=== PATIENT | female | born 1950 | race Caucasian/White ===

== ENCOUNTER 2017-11-17 21:58 | Emergency (ER) | payer MEDICARE, OTHER ==
[~2017-11-17] VITALS: Ht 165.1 cm; Wt 68.0 kg
[2017-11-17] MEDS ORDERED: ASPIRIN81 MG ORAL (22:18)
[2017-11-17] MEDS ORDERED: OXYCODONE HCL10 MG ORAL (22:18)
[2017-11-17] MEDS ORDERED: OXYCONTIN20 MG ORAL (22:18)
[2017-11-17] MEDS ORDERED: ACETAZOLAMIDE250 MG ORAL ×2 (22:18)
[2017-11-17] MEDS ORDERED: DOCUSATE SODIU100 MG ORAL (22:18)
[2017-11-17] MEDS ORDERED: BISACODYL5 MG ORAL (22:18)
[2017-11-17] MEDS ORDERED: LACTULOSE10 GM/153 PO (22:18)
[2017-11-17] MEDS ORDERED: METHAZOLAMIDE50 MG ORAL (22:18)
[2017-11-17] MEDS ORDERED: CELEBREX200 MG ORAL (22:18)
[2017-11-17] MEDS ORDERED: POTASSIUM CHLO10 ME3 ORAL (22:18)
[2017-11-17] MEDS ORDERED: MIRALAX17 G2 ORAL (22:18)
[2017-11-17] MEDS ORDERED: CYMBALTA60 MG ORAL (22:18)
[2017-11-17] MEDS ORDERED: TOPIRAMATE100 MG ORAL (22:18)
[2017-11-17] MEDS ORDERED: TRAZODONE HCL100 MG ORAL (22:19)
[2017-11-17] MEDS ORDERED: AMBIEN10 M1 ORAL (22:19)
--- NOTE | 2017-11-17 22:25 | Emergency Room Report ---
History of Present Illness General Chief Complaint: Lower Extremity Injury Source: Patient Present Illness HPI 67-year-old female brought in by EMS with left knee pain after accidental slip and fall on left knee over this morning. States she's had multiple surgeries to knee in the past. States surgeries have included repair of ligaments and tendons., Has not had knee replacement. No hardware in the knee. Able to flex and extend knee without pain, able to walk. Did not take any over-the- counter medications at home. Allergies: Coded Allergies: CORTICOSTEROIDS (GLUCOCORTICOIDS) (Verified Allergy, Unknown, 11/17/17) Patient History Past Medical History: none Past Surgical History: other - knee surgery Pertinent Family History: none Social History: Denies: smoking, alcohol use, drug use Now: No Immunizations: UTD Reviewed Nursing Documentation: PMH: Agreed, PSxH: Agreed Nursing Documentation-PMH Hx Cardiac Problems: Yes - STENT Hx Gastrointestinal Problems: Yes - BLADDER SURGERY Review of Systems All Other Systems: negative except mentioned in HPI Physical Exam Vital Signs Date Time Temp Pulse Resp B/P (MAP) Pulse Ox O2 Delivery O2 Flow Rate FiO2 11/17/17 21:59 98.5 98 16 174/98 100 Room Air 98.4 Sp02 EP Interpretation: reviewed, normal General Appearance: normal inspection, well appearing, no apparent distress, alert, GCS 15, non-toxic Head: normocephalic, atraumatic Eyes: bilateral eye PERRL, bilateral eye EOMI ENT: normal ENT inspection, hearing grossly normal, normal pharynx, no angioedema, normal voice, TMs + canals normal, uvula midline, moist mucus membranes Neck: normal inspection, full range of motion, supple, thyroid normal, no meningismus, no bony tend Respiratory: normal inspection, lungs clear, normal breath sounds, no rhonchi, no respiratory distress, no retraction, no accessory muscle use, no wheezing, speaking full sentences Cardiovascular #1: regular rate, rhythm, no edema, no JVD, normal capillary refill Gastrointestinal: normal inspection, normal bowel sounds, non tender, soft, no mass, no peritonitis, non-distended, no guarding, no hernia, no pulsatile mass Genitourinary: no CVA tenderness Musculoskeletal: normal inspection, back normal, normal range of motion, no calf tenderness, pelvis stable, Scarlett's Sign negative, other - left knee: Multiple post surgical scarring. No effusion, bruising or obvious trauma. No reduced ROM Neurologic: normal inspection, alert, oriented x3, responsive, basket assembler III-XII nml as tested, motor strength/tone normal, cerebellar normal, normal gait, speech normal Psychiatric: normal inspection, judgement/insight normal, mood/affect normal, no suicidal/homicidal ideation, no delusions Skin: normal inspection, normal color, no rash Lymphatic: normal inspection, no adenopathy Medical Decision Making Diagnostic Impression: Primary Impression: Knee pain, left Qualified Codes: M25.562 - Pain in left knee ER Course 67-year-old female with left knee pain status post accidental trip and fall home No obvious signs of trauma X-rays negative for acute fracture, patient does have significant hardware in the knee, distal femur and proximal tibia with hardware appears intact on ED review no traumatic fracture hardware. She reassured analgesia provided ER course: Patient has remained stable during ED stay. Disposition: Patient is to be discharged to home. Prescriptions given are tylenol Patient is instructed to follow up with their primary care doctor within 5 days. Strict return precautions discussed with patient such as fever, chills, worsening/severe pain, nausea, vomiting, which may indicate severe illness. Patient verbalizes understanding and agrees with plan. Please note that this Emergency Department Report was dictated using Model [employer] picker technology software, occasionally this can lead to erroneous entry secondary to interpretation by the dictation equipment Other X-Ray Diagnostic Results Other X-Ray Diagnostic Results : X-Ray ordered: Left knee # of Views/Limited Vs Complete: 3 View Indication: Pain EP Interpretation: Yes Interpretation: no dislocation, no soft tissue swelling, no fractures, other - Knee replacement hardware intact on ED review Impression: No acute disease Electronically Signed by: Dr Casi Coleman MD Last Vital Signs Date Time Temp Pulse Resp B/P (MAP) Pulse Ox O2 Delivery O2 Flow Rate FiO2 11/17/17 21:59 98.5 98 16 174/98 100 Room Air 98.4 Status: improved Disposition: HOME, SELF-CARE Scripts Acetaminophen (Tylenol) 325 Mg Tablet 650 MG ORAL Q8HR Y for Prn Pain/Headache/Temp > 101 for 7 Days, #30 TAB 0 Refills Prov: CASI COLEMAN M.D. 11/17/17 CASI COLEMAN M.D. Nov 17, 2017 22:25
[2017-11-17] MEDS ORDERED: Acetaminophen 500mg (ES) tab ORAL ONE (22:30)
[2017-11-17] MEDS ORDERED: TYLENOL325 MG ORAL (22:41)
[2017-11-17 23:02] VITALS: BP 174/98
--- NOTE | 2017-11-18 11:02 | Diagnostic Imaging Report ---
Indication: Attain Technique: 3 views of the left knee Comparison: None Findings: Patient is status post knee arthroplasty. Good anatomic alignment of the prosthesis. No worrisome periprosthetic lucency. No acute fractures. No dislocations. No effusion. Impression: No acute process
== END 2017-11-17 23:02 | disposition home or self-care (01) ==
LOC: EDBD 21:58 → EDUNIT# 21:58 → EMR 22:47
DX: M25.562 Pain in left knee (principal); W01.0XXA Fall on same level from slipping, tripping and stumbling without subsequent striking against object, initial encounter; Y92.009 Unspecified place in unspecified non-institutional (private) residence as the place of occurrence of the external cause; Z88.8 Allergy status to other drugs, medicaments and biological substances
CPT/HCPCS: 99283

== ENCOUNTER 2017-11-21 10:42 | Inpatient (IN) | payer MEDICARE, OTHER ==
[~2017-11-21] VITALS: Ht 167.6 cm; Wt 88.5 kg
[~2017-11-21 10:42] MED LIST: ACETAZOLAMIDE250 MG ORAL; AMBIEN10 M1 ORAL; ASPIRIN81 MG ORAL; BISACODYL5 MG ORAL; CELEBREX200 MG ORAL; CYMBALTA60 MG ORAL; DOCUSATE SODIU100 MG ORAL; LACTULOSE10 GM/153 PO; METHAZOLAMIDE50 MG ORAL; MIRALAX17 G2 ORAL; OXYCODONE HCL10 MG ORAL; OXYCONTIN20 MG ORAL; POTASSIUM CHLO10 ME3 ORAL; TOPIRAMATE100 MG ORAL; TRAZODONE HCL100 MG ORAL; TYLENOL325 MG ORAL
[2017-11-21 11:25] VITALS: BP 156/89
[2017-11-21 11:31] LABS: HEMATOCRIT 45.3 % (37.0-47.0); HEMOGLOBIN 14.4 G/DL (12.0-16.0); MEAN CORPUSCULAR VOLUME 92 FL (80-99); PLATELET COUNT 218 K/UL (150-450); RED BLOOD COUNT 4.91 M/UL (4.20-5.40); RED CELL DISTRIBUTION WIDTH 14.1 % (11.6-14.8); WHITE BLOOD COUNT 9.5 K/UL (4.8-10.8)
[2017-11-21 11:41] LABS: ANION GAP 11 mmol/L (5-15); BLOOD UREA NITROGEN 47 mg/dL (7-18); CALCIUM 9.5 MG/DL (8.5-10.1); CARBON DIOXIDE 22 MMOL/L (21-32); CHLORIDE 104 MMOL/L (98-107); CREATININE 1.3 MG/DL (0.55-1.30); SODIUM 137 MMOL/L (136-145)
--- NOTE | 2017-11-21 11:42 | Emergency Room Report ---
History of Present Illness General Chief Complaint: Overdose Source: EMS Present Illness HPI 67-year-old female, unknown past medical history, brought by EMS for altered mental status. Patient is oriented 2 only and cannot give any history. EMS states that patient lives alone however has a health outreach worker a couple times a week. The health outreach worker found patient on the floor this morning. Unknown how long patient was on the floor. Waiter/Waitress First Class states that patient takes oxycodone. EMS came, found patient on the floor, pinpoint pupils, breathing at respiration of 10 and oxygen saturation of 92. EMS gave her 2 mg of Narcan and patient was more awake and alert. She is currently still confused, and not giving much history. However she is moving all extremities spontaneously Waiter/Waitress First Class came to ED, also states patient may have took too much of her sleep medication, does not know name Allergies: Coded Allergies: CORTICOSTEROIDS (GLUCOCORTICOIDS) (Verified Allergy, Unknown, 11/17/17) Patient History Past Medical History: see triage record Past Surgical History: unable to obtain Pertinent Family History: unable to obtain Reviewed Nursing Documentation: PMH: Agreed, PSxH: Agreed Nursing Documentation-PMH Hx Gastrointestinal Problems: Yes - BLADDER SURGERY Review of Systems All Other Systems: limited Physical Exam Vital Signs Date Time Temp Pulse Resp B/P (MAP) Pulse Ox O2 Delivery O2 Flow Rate FiO2 11/21/17 10:38 97.8 104 18 122/68 98 Room Air 97.9 Sp02 EP Interpretation: reviewed, normal General Appearance: moderate distress, other - Middle aged female, can say her name and where she is, not answering other questions, mild distress Head: normocephalic, atraumatic Eyes: bilateral eye normal inspection, bilateral eye PERRL, bilateral eye EOMI ENT: normal ENT inspection, normal pharynx, normal voice, moist mucus membranes Neck: normal inspection, full range of motion, supple Respiratory: normal inspection, lungs clear, normal breath sounds, no respiratory distress, no retraction, no wheezing, speaking full sentences, chest symmetrical Cardiovascular #1: normal inspection, regular rate, rhythm, no edema, normal capillary refill Cardiovascular #2: 2+ radial (R), 2+ radial (L) Gastrointestinal: normal inspection, non tender, soft, non-distended, no guarding Musculoskeletal: normal inspection, back normal, normal range of motion, non- tender Neurologic: other - ANO 2, moving extremities spontaneously Psychiatric: other Skin: normal inspection, normal color, no rash, warm/dry, well hydrated, normal turgor Medical Decision Making Diagnostic Impression: Primary Impression: Altered mental status Additional Impressions: Drug overdose Infestation by bed bug ER Course 67-year-old female, altered mental status DDX: Dehydration, metabolic, ACS, infection, intracranial bleed/stroke, overdose possible over on sleep medication Plan: Obtain labs, ua, EKG, CXR CT head ER course: Patient has been sleeping, not in pain, when arouse her she can again say her name and where she is but does not want to give history, moving her ext spontaneously VSS no leukocytosis and not febrile rectally ams/inc sleepiness may be 2/2 to medication overdose No acute findings and head CT. However there is artifact noted in the posterior fossa wll obtain MRI inpatient, patient unable to get right now due to bed bug infestation, given permethrin cream, notifeied Dr Bowers Disposition: Patient is to be admitted to telemetry D/W hospitalist Dr Bowers Please note that this Emergency Department Report was dictated using [employer] and frost insulator technology software, occasionally this can lead to erroneous entry secondary to interpretation by the dictation equipment. EKG Diagnostic Results EP Interpretation: Yes Rate: normal Rhythm: NSR ST Segments: Poor quality EKG, no acute ST-T changes noted ASA given to patient: No Rhythm Strip EP Interpretation: Yes Rate: 99 Rhythm: NSR, no PVCs, no ectopy Chest X-ray CXR: Ordered: Yes 1 view Indication: Altered Mental status EP interpretation: Yes Interpretation: No consolidation, no effusion, no PTX, no acute cardiopulmonary disease Impression: No acute disease Electronically signed by Evelia Samuels MD Laboratory Tests Test 11/21/17 11:00 11/21/17 11:08 11/21/17 11:10 White Blood Count 9.5 K/UL (4.8-10.8) Red Blood Count 4.91 M/UL (4.20-5.40) Hemoglobin 14.4 G/DL (12.0-16.0) Hematocrit 45.3 % (37.0-47.0) Mean Corpuscular Volume 92 FL (80-99) Mean Corpuscular Hemoglobin 29.3 PG (27.0-31.0) Mean Corpuscular Hemoglobin Concent 31.7 G/DL (32.0-36.0) L Red Cell Distribution Width 14.1 % (11.6-14.8) Platelet Count 218 K/UL (150-450) Mean Platelet Volume 5.9 FL (6.5-10.1) L Neutrophils (%) (Auto) % (45.0-75.0) Lymphocytes (%) (Auto) % (20.0-45.0) Monocytes (%) (Auto) % (1.0-10.0) Eosinophils (%) (Auto) % (0.0-3.0) Basophils (%) (Auto) % (0.0-2.0) Differential Total Cells Counted 100 Neutrophils % (Manual) 93 % (45-75) H Lymphocytes % (Manual) 5 % (20-45) L Monocytes % (Manual) 2 % (1-10) Eosinophils % (Manual) 0 % (0-3) Basophils % (Manual) 0 % (0-2) Band Neutrophils 0 % (0-8) Platelet Estimate Adequate Platelet Morphology Normal Red Blood Cell Morphology Normal Hypochromasia Prothrombin Time 9.8 SEC (9.30-11.50) Prothrombin Time INR 0.9 (0.9-1.1) PTT 22 SEC (23-33) L Sodium Level 137 MMOL/L (136-145) Potassium Level 5.0 MMOL/L (3.5-5.1) Chloride Level 104 MMOL/L (98-107) Carbon Dioxide Level 22 MMOL/L (21-32) Anion Gap 11 mmol/L (5-15) Blood Urea Nitrogen 47 mg/dL (7-18) H Creatinine 1.3 MG/DL (0.55-1.30) Estimate Glomerular Filtration Rate 41.1 mL/min (>60) Glucose Level 178 MG/DL (74-106) H Lactic Acid Level 2.70 mmol/L (0.66-2.22) H Calcium Level 9.5 MG/DL (8.5-10.1) Total Bilirubin 0.3 MG/DL (0.2-1.0) Aspartate Amino Transferase (AST) 29 U/L (15-37) Alanine Aminotransferase (ALT) 374 U/L (12-78) H Alkaline Phosphatase 109 U/L (46-116) Total Creatine Kinase 190 U/L (26-308) Troponin I 0.002 ng/mL (0.000-0.056) Pro-B-Type Natriuretic Peptide 283 pg/mL (0-125) H Total Protein 8.5 G/DL (6.4-8.2) H Albumin 4.4 G/DL (3.4-5.0) Globulin 4.1 g/dL Albumin/Globulin Ratio 1.1 (1.0-2.7) Salicylates Level 2.0 ug/mL (2.8-20) L Acetaminophen Level < 2 MCG/ML (10-30) L Serum Alcohol < 3 mg/dL Urine Color Yellow Urine Appearance Slightly cloudy Urine pH 6 (4.5-8.0) Urine Specific [place] 1.020 (1.005-1.035) Urine Protein 3+ (NEGATIVE) H Urine Glucose (UA) Negative (NEGATIVE) Urine Ketones Negative (NEGATIVE) Urine Occult Blood 1+ (NEGATIVE) H Urine Nitrite Negative (NEGATIVE) Urine Bilirubin 1+ (NEGATIVE) H Urine Ictotest Negative Urine Urobilinogen 1 MG/DL (0.0-1.0) H Urine Leukocyte Esterase 1+ (NEGATIVE) H Urine RBC 2-4 /HPF (0 - 2) H Urine WBC 2-4 /HPF (0 - 2) Urine Squamous Epithelial Cells Few /LPF (NONE/OCC) Urine Bacteria Few /HPF (NONE) Urine Hyaline Casts 5-10 /LPF (NONE) H Urine Opiates Screen Negative (NEGATIVE) Urine Barbiturates Screen Negative (NEGATIVE) Phencyclidine (PCP) Screen Negative (NEGATIVE) Urine Amphetamines Screen Negative (NEGATIVE) Urine Benzodiazepines Screen Negative (NEGATIVE) Urine Cocaine Screen Negative (NEGATIVE) Urine Marijuana (THC) Screen Negative (NEGATIVE) Microbiology Date/Time Source Procedure Growth Status 11/21/17 11:05 Nasal Nares Influenza Types A,B Antigen (MIR) - Final Complete CT/MRI/US Diagnostic Results CT/MRI/US Diagnostic Results : Imaging Test Ordered: ct head Impression Findings: There is considerable artifact in the posterior fossa. The lower aspect of the fourth ventricle is not visualized. Hyperdense artifacts scattered throughout the posterior fossa noted. Significant pathology may be missed. The lateral ventricles are small in caliber. There is a right-sided ventriculostomy that appears to traverse both anterior horns. There is no mass effect or acute supratentorial bleed identified. There is a moderate degree of mucosal thickening within the visualized paranasal sinuses. IMPRESSION: Small lateral and third ventricles in the setting of a ventriculostomy. Patient may be over shunted. Please correlate clinically. There are no reference studies. Considerable artifact in the posterior fossa. Significant pathology may be missed. Last Vital Signs Date Time Temp Pulse Resp B/P (MAP) Pulse Ox O2 Delivery O2 Flow Rate FiO2 11/21/17 11:25 104 18 Room Air 11/21/17 11:25 98.3 156/89 96 98.3 Disposition: ADMITTED INPATIENT Condition: Serious Evelia Samuels M.D. Nov 21, 2017 11:42
[2017-11-21 11:52] LABS: ALANINE AMINOTRANSFERASE 374 U/L (12-78); ALBUMIN 4.4 G/DL (3.4-5.0); ALBUMIN/GLOBULIN RATIO 1.1 (1.0-2.7); ALKALINE PHOSPHATASE 109 U/L (46-116); ASPARTATE AMINO TRANSFERASE 29 U/L (15-37); BILIRUBIN,TOTAL 0.3 MG/DL (0.2-1.0); CREATINE KINASE 190 U/L (26-308)
[2017-11-21 11:54] LABS: APPEARANCE,URINE SLIGHTLY CLOUDY; BILIRUBIN, URINE 1+ (NEGATIVE); GLUCOSE, URINE (UA) NEGATIVE (NEGATIVE); KETONES,URINE NEGATIVE (NEGATIVE); LEUKOCYTE ESTERASE ,URINE 1+ (NEGATIVE); NITRITE,URINE NEGATIVE (NEGATIVE); PH,URINE 6 (4.5-8.0); PROTEIN,URINE 3+ (NEGATIVE); UROBILINOGEN,URINE 1 MG/DL (0.0-1.0)
[2017-11-21 11:55] LABS: COLOR,URINE YELLOW
[2017-11-21 11:59] LABS: INR 0.9 (0.9-1.1)
--- NOTE | 2017-11-21 12:13 | Diagnostic Imaging Report ---
Indication: Dyspnea Comparison: None A single view chest radiograph was obtained. Findings: Lung volumes are low. There is some prominence of pulmonary interstitial markings. There is suggestion of mild left basal atelectasis. The heart is slightly prominent in size. Bones are osteopenic. There is a GREEN HOUSE MANAGER shunt projected over the right side of the chest. IMPRESSION: Limited evaluation. Mild left basal atelectasis. GREEN HOUSE MANAGER shunt
--- NOTE | 2017-11-21 12:19 | Diagnostic Imaging Report ---
Indication: Altered mental status Technique: Contiguous 5 mm thick transaxial imaging of the head obtained in a Siemens Sensation [address] scanner. Soft tissue and bone windows generated. Automatic Exposure Control was utilized. Total Dose length Product (DLP): 1534.[address] Dose Index Volume (CTDIvol): 70.38 mGy Comparison: none Findings: There is considerable artifact in the posterior fossa. The lower aspect of the fourth ventricle is not visualized. Hyperdense artifacts scattered throughout the posterior fossa noted. Significant pathology may be missed. The lateral ventricles are small in caliber. There is a right-sided ventriculostomy that appears to traverse both anterior horns. There is no mass effect or acute supratentorial bleed identified. There is a moderate degree of mucosal thickening within the visualized paranasal sinuses. IMPRESSION: Small lateral and third ventricles in the setting of a ventriculostomy. Patient may be over shunted. Please correlate clinically. There are no reference studies. Considerable artifact in the posterior fossa. Significant pathology may be missed. The CT scanner at [facility] is accredited by the [employer] and the scans are performed using dose optimization techniques as appropriate to a performed exam including Automatic Exposure control.
[2017-11-21 12:22] VITALS: BP 113/53
[2017-11-21 13:30] VITALS: BP 115/55
[2017-11-21] MEDS ORDERED: Morphine Sulfate 2mg/ml Inj IVP PRN (13:45)
[2017-11-21] MEDS ORDERED: LORazepam Inj 2mg/ml 1ml IV PRN (13:45)
[2017-11-21 14:30] VITALS: BP 126/58
--- NOTE | 2017-11-21 16:55 | Diagnostic Imaging Report ---
Indication: Altered mental status Technique: The head was imaged in a 1.5 Leandra magnet. Sequences obtained include sagittal and axial T1 FLAIR, axial T2 fast spin echo with fat saturation, axial T2 FLAIR, diffusion and ADC map. Comparison: CT head earlier today Findings: There is extensive motion limiting evaluation. There is also artifact due to presence of a ventriculostomy shunt over the right frontal region. Significant pathology may be missed. Mild, nonspecific T2 hyperintensity noted within white matter. This may be due to chronic small vessel disease. There is no obvious restricted diffusion. There is no obvious mass effect, midline shift, edema, or hemorrhage. There are no obvious abnormal extra-axial or intra-axial fluid collections. The corpus callosum and sella are unremarkable. The brainstem and cerebellum are unremarkable. Bone marrow signal within the visualized osseous structures appears age appropriate and unremarkable otherwise. Mucosal thickening noted in the paranasal sinuses. Impression: No acute intracranial findings. Significant limitation due to motion and artifact as described above. Mild chronic small vessel disease involving white matter tracts. Ventriculostomy
[2017-11-21] MEDS: D5 1/2NS 1,000 ML IV SCH (17:17)
[2017-11-21] MEDS: Topiramate 100mg tab ORAL SCH ×2 (18:00→20:30)
--- NOTE | 2017-11-21 19:15 | Consultation ---
History of Present Illness General Date patient seen: Nov 21, 2017 Chief Complaint: Overdose Reason for Consultation: atelectasis Present Illness HPI 67-year-old female with past medical history of ventriculostomy shunt, brought by EMS for altered mental status. Patient is oriented 2 only and cannot give any history. The wire preparation worker found patient on the floor this morning. Unknown how long patient was on the floor. Nuclear Engineering Technician states that patient takes oxycodone. Pt had pinpoint pupils, breathing at respiration of 10 and oxygen saturation of 92. EMS gave her 2 mg of Narcan and patient was more awake and alert. She is currently still confused, and not giving much history. However she is moving all extremities spontaneously pt is admitted to telemetry for further management. Allergies: Coded Allergies: CORTICOSTEROIDS (GLUCOCORTICOIDS) (Verified Allergy, Unknown, 11/17/17) Medication History Scheduled Acetazolamide* (Acetazolamide*), 500 MG ORAL THREE TIMES A DAY, (Reported) Acetazolamide* (Acetazolamide*), 750 MG ORAL BEDTIME, (Reported) Aspirin* (Aspirin*), 81 MG ORAL DAILY, (Reported) Bisacodyl* (Dulcolax*), 10 MG ORAL DAILY, (Reported) Celecoxib* (Celebrex*), 200 MG ORAL TWICE A DAY, (Reported) Docusate Sodium* (Docusate Sodium*), 100 MG ORAL FOUR TIMES A DAY, (Reported) Duloxetine Hcl* (Cymbalta*), 60 MG ORAL DAILY, (Reported) Lactulose (Lactulose), 45 ML PO BEDTIME, (Reported) Methazolamide (Methazolamide*), 50 MG ORAL FOUR TIMES A DAY, (Reported) Oxycodone Hcl Er* (Oxycontin*), 20 MG ORAL THREE TIMES A DAY, (Reported) Polyethylene Glycol 3350* (Miralax*), 68 GM ORAL DAILY, (Reported) Potassium Chloride (Potassium Chloride), 10 MEQ ORAL FOUR TIMES A DAY, (Reported ) Topiramate* (Topamax*), 100 MG ORAL FOUR TIMES A DAY, (Reported) Trazodone Hcl* (Desyrel*), 200 MG ORAL BEDTIME, (Reported) Scheduled PRN Acetaminophen (Tylenol), 650 MG ORAL Q8HR PRN for Prn Pain/Headache/Temp > 101 Oxycodone Hcl* (Oxycodone Hcl*), 20 MG ORAL Q4H PRN for For Pain, (Reported) Zolpidem Tartrate* (Ambien*), 10 MG ORAL HS PRN for Insomnia, (Reported) Patient History Healthcare decision maker Resuscitation status Advanced Directive on File Past Medical/Surgical History Past Medical/Surgical History: (1) Drug overdose (2) Knee pain, left Review of Systems Constitutional: Reports: malaise Eye: Reports: no symptoms, nose pain ENT: Reports: no symptoms All Other Systems: negative except mentioned in HPI Physical Exam General Appearance: WD/WN Lines, tubes and drains: peripheral HEENT: normocephalic, atraumatic Neck: non-tender, normal alignment Respiratory/Chest: chest wall non-tender, lungs clear Cardiovascular/Chest: normal peripheral pulses, normal rate Abdomen: normal bowel sounds Genitourinary/Rectal: normal genital exam Extremities: normal range of motion Last 24 Hour Vital Signs Date Time Temp Pulse Resp B/P (MAP) Pulse Ox O2 Delivery O2 Flow Rate FiO2 11/21/17 15:30 98.0 78 23 126/58 100 Room Air 11/21/17 14:30 98.0 78 23 126/58 100 Room Air 98.0 11/21/17 13:30 98.3 78 20 115/55 97 Room Air 98.3 11/21/17 12:22 98.3 85 26 113/53 94 Nasal Cannula 2.0 98.3 11/21/17 11:25 104 18 Room Air 11/21/17 11:25 98.3 99 19 156/89 96 Room Air 98.3 11/21/17 10:38 97.8 104 18 122/68 98 Room Air 97.9 Laboratory Tests Test 11/21/17 11:00 11/21/17 11:08 11/21/17 11:10 11/21/17 13:00 White Blood Count 9.5 K/UL (4.8-10.8) Red Blood Count 4.91 M/UL (4.20-5.40) Hemoglobin 14.4 G/DL (12.0-16.0) Hematocrit 45.3 % (37.0-47.0) Mean Corpuscular Volume 92 FL (80-99) Mean Corpuscular Hemoglobin 29.3 PG (27.0-31.0) Mean Corpuscular Hemoglobin Concent 31.7 G/DL (32.0-36.0) L Red Cell Distribution Width 14.1 % (11.6-14.8) Platelet Count 218 K/UL (150-450) Mean Platelet Volume 5.9 FL (6.5-10.1) L Neutrophils (%) (Auto) % (45.0-75.0) Lymphocytes (%) (Auto) % (20.0-45.0) Monocytes (%) (Auto) % (1.0-10.0) Eosinophils (%) (Auto) % (0.0-3.0) Basophils (%) (Auto) % (0.0-2.0) Differential Total Cells Counted 100 Neutrophils % (Manual) 93 % (45-75) H Lymphocytes % (Manual) 5 % (20-45) L Monocytes % (Manual) 2 % (1-10) Eosinophils % (Manual) 0 % (0-3) Basophils % (Manual) 0 % (0-2) Band Neutrophils 0 % (0-8) Platelet Estimate Adequate Platelet Morphology Normal Red Blood Cell Morphology Normal Hypochromasia Prothrombin Time 9.8 SEC (9.30-11.50) Prothromb Time International Ratio 0.9 (0.9-1.1) Activated Partial Thromboplast Time 22 SEC (23-33) L Sodium Level 137 MMOL/L (136-145) Potassium Level 5.0 MMOL/L (3.5-5.1) Chloride Level 104 MMOL/L (98-107) Carbon Dioxide Level 22 MMOL/L (21-32) Anion Gap 11 mmol/L (5-15) Blood Urea Nitrogen 47 mg/dL (7-18) H Creatinine 1.3 MG/DL (0.55-1.30) Estimat Glomerular Filtration Rate 41.1 mL/min (>60) Glucose Level 178 MG/DL (74-106) H Lactic Acid Level 2.70 mmol/L (0.66-2.22) H 1.20 mmol/L (0.66-2.22) Calcium Level 9.5 MG/DL (8.5-10.1) Total Bilirubin 0.3 MG/DL (0.2-1.0) Aspartate Amino Transf (AST/SGOT) 29 U/L (15-37) Alanine Aminotransferase (ALT/SGPT) 374 U/L (12-78) H Alkaline Phosphatase 109 U/L (46-116) Total Creatine Kinase 190 U/L (26-308) Troponin I 0.002 ng/mL (0.000-0.056) Pro-B-Type Natriuretic Peptide 283 pg/mL (0-125) H Total Protein 8.5 G/DL (6.4-8.2) H Albumin 4.4 G/DL (3.4-5.0) Globulin 4.1 g/dL Albumin/Globulin Ratio 1.1 (1.0-2.7) Salicylates Level 2.0 ug/mL (2.8-20) L Acetaminophen Level < 2 MCG/ML (10-30) L Serum Alcohol < 3 mg/dL Urine Color Yellow Urine Appearance Slightly cloudy Urine pH 6 (4.5-8.0) Urine Specific [place] 1.020 (1.005-1.035) Urine Protein 3+ (NEGATIVE) H Urine Glucose (UA) Negative (NEGATIVE) Urine Ketones Negative (NEGATIVE) Urine Occult Blood 1+ (NEGATIVE) H Urine Nitrite Negative (NEGATIVE) Urine Bilirubin 1+ (NEGATIVE) H Urine Ictotest Negative Urine Urobilinogen 1 MG/DL (0.0-1.0) H Urine Leukocyte Esterase 1+ (NEGATIVE) H Urine RBC 2-4 /HPF (0 - 2) H Urine WBC 2-4 /HPF (0 - 2) Urine Squamous Epithelial Cells Few /LPF (NONE/OCC) Urine Bacteria Few /HPF (NONE) Urine Hyaline Casts 5-10 /LPF (NONE) H Urine Opiates Screen Negative (NEGATIVE) Urine Barbiturates Screen Negative (NEGATIVE) Phencyclidine (PCP) Screen Negative (NEGATIVE) Urine Amphetamines Screen Negative (NEGATIVE) Urine Benzodiazepines Screen Negative (NEGATIVE) Urine Cocaine Screen Negative (NEGATIVE) Urine Marijuana (THC) Screen Negative (NEGATIVE) Microbiology Date/Time Source Procedure Growth Status 11/21/17 11:05 Nasal Nares Influenza Types A,B Antigen (MIR) - Final Complete Height (Feet): 5 Height (Inches): 6.00 Weight (Pounds): 180 Medications Current Medications Medications (Trade) Dose Ordered Sig/Karis Route PRN Reason Start Time Stop Time Status Last Admin Dose Admin Aspirin (ASA) 81 mg DAILY ORAL 11/22/17 09:00 12/22/17 08:59 Dextrose (Dextrose 50%) STAT PRN IV Hypoglycemia 11/21/17 13:45 12/21/17 13:44 Dextrose/Sodium Chloride 1,000 ml @ 50 mls/hr Q20H IV 11/21/17 13:43 12/21/17 13:42 11/21/17 17:17 Duloxetine HCl (Cymbalta) 60 mg DAILY ORAL 11/22/17 09:00 12/22/17 08:59 Heparin Sodium (Porcine) (Heparin 5000 units/ml) 5,000 units EVERY 12 HOURS SUBQ 11/21/17 21:00 12/21/17 20:59 Lorazepam (Ativan 2mg/ml 1ml) 0.5 mg Q4H PRN IV For Anxiety 11/21/17 13:45 11/28/17 13:44 Morphine Sulfate (Morphine Sulfate) 1 mg EVERY 4 HOURS PRN IVP For Pain 11/21/17 13:45 11/28/17 13:44 Ondansetron HCl (Zofran) 4 mg Q6H PRN IVP Nausea & Vomiting 11/21/17 13:45 12/21/17 13:44 Topiramate (Topamax) 100 mg FOUR TIMES A DAY ORAL 11/21/17 18:00 12/21/17 17:59 Trazodone HCl (Desyrel) 200 mg BEDTIME ORAL 11/21/17 21:00 12/21/17 20:59 Assessment/Plan Problem List: (1) Altered mental status ICD Codes: R41.82 - Altered mental status, unspecified SNOMED: 347214328 (2) Drug overdose ICD Codes: T50.901A - Poisoning by unspecified drugs, medicaments and biological substances, accidental (unintentional), initial encounter SNOMED: 22192168 (3) Psychiatric care SNOMED: 27716469, 746289418 (4) Knee pain, left ICD Codes: M25.562 - Pain in left knee SNOMED: 86082572 Assessment/Plan more awake, c/o left sided weakness, will ask neuro to see c/o pain in knee psych evaluation check electrolytes. iv fluids dvt prophylaxis. MILA ADRIAN Nov 21, 2017 19:15
[2017-11-21 20:00] VITALS: BP 132/70
[2017-11-21] MEDS: Heparin 5000 units/ml inj SUBQ SCH (20:33)
[2017-11-21] MEDS ORDERED: TraZODone 100mg tab ORAL SCH (21:00)
[2017-11-22] VITALS: BP 127/69
[2017-11-22 04:00] VITALS: BP 135/65
[2017-11-22 08:00] VITALS: BP 111/70
[2017-11-22] MEDS ORDERED: DULoxetine 30mg cap ORAL SCH (09:00)
[2017-11-22] MEDS ORDERED: Aspirin Baby 81mg ORAL SCH (09:00)
[2017-11-22 09:03] LABS: BASOPHILS % (AUTO) 0.6 % (0.0-2.0); EOSINOPHILS % (AUTO) 1.7 % (0.0-3.0); HEMATOCRIT 35.8 % (37.0-47.0); HEMOGLOBIN 11.5 G/DL (12.0-16.0); LYMPHOCYTES % (AUTO) 26.3 % (20.0-45.0); MEAN CORPUSCULAR VOLUME 90 FL (80-99); MONOCYTES % (AUTO) 7.9 % (1.0-10.0); NEUTROPHILS % (AUTO) 63.5 % (45.0-75.0); PLATELET COUNT 179 K/UL (150-450); RED BLOOD COUNT 3.98 M/UL (4.20-5.40); RED CELL DISTRIBUTION WIDTH 13.6 % (11.6-14.8); WHITE BLOOD COUNT 7.2 K/UL (4.8-10.8)
[2017-11-22 09:22] LABS: ALANINE AMINOTRANSFERASE 207 U/L (12-78); ALBUMIN/GLOBULIN RATIO 1.1 (1.0-2.7); ALKALINE PHOSPHATASE 68 U/L (46-116); ANION GAP 7 mmol/L (5-15); ASPARTATE AMINO TRANSFERASE 41 U/L (15-37); BILIRUBIN,TOTAL 0.4 MG/DL (0.2-1.0); BLOOD UREA NITROGEN 25 mg/dL (7-18); CALCIUM 8.1 MG/DL (8.5-10.1); CARBON DIOXIDE 25 MMOL/L (21-32); CHLORIDE 110 MMOL/L (98-107); CREATININE 0.7 MG/DL (0.55-1.30); POTASSIUM 3.7 MMOL/L (3.5-5.1); SODIUM 142 MMOL/L (136-145)
[2017-11-22] MEDS: Topiramate 100mg tab ORAL SCH ×4 (09:50→21:25)
[2017-11-22] MEDS: Heparin 5000 units/ml inj SUBQ SCH ×2 (09:51→20:47)
[2017-11-22] MEDS: D5 1/2NS 1,000 ML IV SCH ×2 (09:54→18:17)
[2017-11-22 12:00] VITALS: BP 116/72
[2017-11-22] MEDS ORDERED: Morphine Sulfate 2mg/ml Inj IVP PRN (13:00)
--- NOTE | 2017-11-22 13:21 | Pulmonology Progress Note ---
Assessment/Plan Problems: (1) Altered mental status (2) Drug overdose (3) Psychiatric care (4) Knee pain, left Assessment/Plan awaiting neuro evaluation symptomatic treatment resume feeding dvt porphylaxis check electrolytes pt/ot med/surg Subjective ROS Limited/Unobtainable: No Interval Events: feeling much better Allergies: Coded Allergies: CORTICOSTEROIDS (GLUCOCORTICOIDS) (Verified Allergy, Unknown, 11/17/17) Objective Last 24 Hour Vital Signs Date Time Temp Pulse Resp B/P (MAP) Pulse Ox O2 Delivery O2 Flow Rate FiO2 11/22/17 12:00 98.1 72 20 116/72 93 Room Air 98.1 11/22/17 08:00 98.5 72 20 111/70 92 Room Air 98.5 11/22/17 08:00 68 11/22/17 04:00 69 11/22/17 04:00 97.0 82 22 135/65 96 Room Air 97.0 11/22/17 00:00 97.6 81 20 127/69 98 Room Air 97.6 11/22/17 00:00 67 11/21/17 20:00 73 11/21/17 20:00 97.3 80 21 132/70 97 Room Air 97.3 11/21/17 15:30 98.0 78 23 126/58 100 Room Air 11/21/17 14:30 98.0 78 23 126/58 100 Room Air 98.0 11/21/17 13:30 98.3 78 20 115/55 97 Room Air 98.3 Intake and Output 11/21/17 11/22/17 19:00 07:00 Output Total 200 ml Balance -200 ml Output Urine Total 200 ml # Voids 1 General Appearance: WD/WN HEENT: normocephalic, atraumatic Respiratory/Chest: chest wall non-tender, lungs clear Breasts: no masses Cardiovascular: normal peripheral pulses, no JVD Abdomen: soft, non tender, non distended Extremities: no cyanosis Microbiology Date/Time Source Procedure Growth Status 11/21/17 11:05 Blood Blood Culture - Preliminary Resulted 11/21/17 11:05 Nasal Nares Influenza Types A,B Antigen (MIR) - Final Complete Laboratory Tests 11/22/17 08:25: White Blood Count 7.2, Red Blood Count 3.98L, Hemoglobin 11.5L, Hematocrit 35.8L , Mean Corpuscular Volume 90, Mean Corpuscular Hemoglobin 28.8, Mean Corpuscular Hemoglobin Concent 32.1, Red Cell Distribution Width 13.6, Platelet Count 179, Mean Platelet Volume 6.3L, Neutrophils (%) (Auto) 63.5, Lymphocytes ( %) (Auto) 26.3, Monocytes (%) (Auto) 7.9, Eosinophils (%) (Auto) 1.7, Basophils (%) (Auto) 0.6, Sodium Level 142, Potassium Level 3.7, Chloride Level 110H, Carbon Dioxide Level 25, Anion Gap 7, Blood Urea Nitrogen 25H, Creatinine 0.7, Estimat Glomerular Filtration Rate > 60, Glucose Level 107H, Calcium Level 8.1L , Total Bilirubin 0.4, Aspartate Amino Transf (AST/SGOT) 41H, Alanine Aminotransferase (ALT/SGPT) 207H, Alkaline Phosphatase 68, Total Protein 5.8#L, Albumin 3.0L, Globulin 2.8, Albumin/Globulin Ratio 1.1 Current Medications Medications (Trade) Dose Ordered Sig/Karis Route PRN Reason Start Time Stop Time Status Last Admin Dose Admin Aspirin (ASA) 81 mg DAILY ORAL 11/22/17 09:00 12/22/17 08:59 11/22/17 09:50 Dextrose (Dextrose 50%) STAT PRN IV Hypoglycemia 11/21/17 13:45 12/21/17 13:44 Dextrose/Sodium Chloride 1,000 ml @ 50 mls/hr Q20H IV 11/21/17 13:43 12/21/17 13:42 11/22/17 09:54 Duloxetine HCl (Cymbalta) 60 mg DAILY ORAL 11/22/17 09:00 12/22/17 08:59 11/22/17 09:49 Heparin Sodium (Porcine) (Heparin 5000 units/ml) 5,000 units EVERY 12 HOURS SUBQ 11/21/17 21:00 12/21/17 20:59 11/22/17 09:51 Lorazepam (Ativan 2mg/ml 1ml) 0.5 mg Q4H PRN IV For Anxiety 11/21/17 13:45 11/28/17 13:44 Morphine Sulfate (Morphine Sulfate) 2 mg Q4H PRN IVP For Pain Scale 7-10 11/22/17 13:00 11/29/17 12:59 Ondansetron HCl (Zofran) 4 mg Q6H PRN IVP Nausea & Vomiting 11/21/17 13:45 12/21/17 13:44 Topiramate (Topamax) 100 mg FOUR TIMES A DAY ORAL 11/21/17 18:00 12/21/17 17:59 11/22/17 09:50 Trazodone HCl (Desyrel) 200 mg BEDTIME ORAL 11/21/17 21:00 12/21/17 20:59 11/21/17 20:34 MILA ADRIAN Nov 22, 2017 13:21
[2017-11-22 15:54] VITALS: BP 141/86
[2017-11-22] MEDS ORDERED: LORazepam Inj 2mg/ml 1ml IV PRN (17:00)
[2017-11-22] MEDS: Morphine Sulfate 2mg/ml Inj IVP PRN ×2 (18:07→22:35)
--- NOTE | 2017-11-22 20:24 | History & Physical ---
History and Physical History & Physicial [id number]. LAMONT ALBA Nov 22, 2017 20:24
[2017-11-22 20:30] VITALS: BP 155/82
--- NOTE | 2017-11-22 20:33 | Consultation ---
History of Present Illness General Chief Complaint: Overdose Reason for Consultation: atelectasis Present Illness HPI 67-year-old female with history of ventriculostomy shunt, brought by EMS for altered mental status. the pt was not able to provide history, the pt has cognitive impairment. The senior billing consultant found patient on the floor this morning. Unknown how long patient was on the floor. Scale Operator states that patient takes oxycodone. Pt had pinpoint pupils, breathing at respiration of 10 and oxygen saturation of 92. EMS gave her 2 mg of Narcan and patient was more awake and alert. She is currently still confused, and not giving much history. Allergies: Coded Allergies: CORTICOSTEROIDS (GLUCOCORTICOIDS) (Verified Allergy, Unknown, 11/17/17) Medication History Scheduled Acetazolamide* (Acetazolamide*), 500 MG ORAL THREE TIMES A DAY, (Reported) Acetazolamide* (Acetazolamide*), 750 MG ORAL BEDTIME, (Reported) Aspirin* (Aspirin*), 81 MG ORAL DAILY, (Reported) Bisacodyl* (Dulcolax*), 10 MG ORAL DAILY, (Reported) Celecoxib* (Celebrex*), 200 MG ORAL TWICE A DAY, (Reported) Docusate Sodium* (Docusate Sodium*), 100 MG ORAL FOUR TIMES A DAY, (Reported) Duloxetine Hcl* (Cymbalta*), 60 MG ORAL DAILY, (Reported) Lactulose (Lactulose), 45 ML PO BEDTIME, (Reported) Methazolamide (Methazolamide*), 50 MG ORAL FOUR TIMES A DAY, (Reported) Oxycodone Hcl Er* (Oxycontin*), 20 MG ORAL THREE TIMES A DAY, (Reported) Polyethylene Glycol 3350* (Miralax*), 68 GM ORAL DAILY, (Reported) Potassium Chloride (Potassium Chloride), 10 MEQ ORAL FOUR TIMES A DAY, (Reported ) Topiramate* (Topamax*), 100 MG ORAL FOUR TIMES A DAY, (Reported) Trazodone Hcl* (Desyrel*), 200 MG ORAL BEDTIME, (Reported) Scheduled PRN Acetaminophen (Tylenol), 650 MG ORAL Q8HR PRN for Prn Pain/Headache/Temp > 101 Oxycodone Hcl* (Oxycodone Hcl*), 20 MG ORAL Q4H PRN for For Pain, (Reported) Zolpidem Tartrate* (Ambien*), 10 MG ORAL HS PRN for Insomnia, (Reported) Patient History Healthcare decision maker Resuscitation status Full Code Advanced Directive on File Physical Exam Last 24 Hour Vital Signs Date Time Temp Pulse Resp B/P (MAP) Pulse Ox O2 Delivery O2 Flow Rate FiO2 11/22/17 15:54 98.4 68 20 141/86 92 Room Air 98.4 11/22/17 14:34 98.1 11/22/17 14:04 98.1 11/22/17 12:00 62 11/22/17 12:00 98.1 72 20 116/72 93 Room Air 98.1 11/22/17 08:00 98.5 72 20 111/70 92 Room Air 98.5 11/22/17 08:00 68 11/22/17 04:00 69 11/22/17 04:00 97.0 82 22 135/65 96 Room Air 97.0 11/22/17 00:00 97.6 81 20 127/69 98 Room Air 97.6 11/22/17 00:00 67 Intake and Output 11/21/17 11/22/17 19:00 07:00 Intake Total 50 ml Output Total 200 ml Balance -200 ml 50 ml IV Total 50 ml Output Urine Total 200 ml # Voids 1 Laboratory Tests Test 11/22/17 08:25 White Blood Count 7.2 K/UL (4.8-10.8) Red Blood Count 3.98 M/UL (4.20-5.40) L Hemoglobin 11.5 G/DL (12.0-16.0) L Hematocrit 35.8 % (37.0-47.0) L Mean Corpuscular Volume 90 FL (80-99) Mean Corpuscular Hemoglobin 28.8 PG (27.0-31.0) Mean Corpuscular Hemoglobin Concent 32.1 G/DL (32.0-36.0) Red Cell Distribution Width 13.6 % (11.6-14.8) Platelet Count 179 K/UL (150-450) Mean Platelet Volume 6.3 FL (6.5-10.1) L Neutrophils (%) (Auto) 63.5 % (45.0-75.0) Lymphocytes (%) (Auto) 26.3 % (20.0-45.0) Monocytes (%) (Auto) 7.9 % (1.0-10.0) Eosinophils (%) (Auto) 1.7 % (0.0-3.0) Basophils (%) (Auto) 0.6 % (0.0-2.0) Sodium Level 142 MMOL/L (136-145) Potassium Level 3.7 MMOL/L (3.5-5.1) Chloride Level 110 MMOL/L (98-107) H Carbon Dioxide Level 25 MMOL/L (21-32) Anion Gap 7 mmol/L (5-15) Blood Urea Nitrogen 25 mg/dL (7-18) H Creatinine 0.7 MG/DL (0.55-1.30) Estimat Glomerular Filtration Rate > 60 mL/min (>60) Glucose Level 107 MG/DL (74-106) H Calcium Level 8.1 MG/DL (8.5-10.1) L Total Bilirubin 0.4 MG/DL (0.2-1.0) Aspartate Amino Transf (AST/SGOT) 41 U/L (15-37) H Alanine Aminotransferase (ALT/SGPT) 207 U/L (12-78) H Alkaline Phosphatase 68 U/L (46-116) Total Protein 5.8 G/DL (6.4-8.2) #L Albumin 3.0 G/DL (3.4-5.0) L Globulin 2.8 g/dL Albumin/Globulin Ratio 1.1 (1.0-2.7) Height (Feet): 5 Height (Inches): 6.00 Weight (Pounds): 195 Medications Current Medications Medications (Trade) Dose Ordered Sig/Karis Route PRN Reason Start Time Stop Time Status Last Admin Dose Admin Aspirin (ASA) 81 mg DAILY ORAL 11/23/17 09:00 12/22/17 08:59 Dextrose (Dextrose 50%) STAT PRN IV Hypoglycemia 11/22/17 17:00 12/22/17 16:59 Dextrose/Sodium Chloride 1,000 ml @ 50 mls/hr Q20H IV 11/22/17 17:15 12/21/17 17:14 11/22/17 18:17 Duloxetine HCl (Cymbalta) 60 mg DAILY ORAL 11/23/17 09:00 12/22/17 08:59 Heparin Sodium (Porcine) (Heparin 5000 units/ml) 5,000 units EVERY 12 HOURS SUBQ 11/22/17 21:00 12/21/17 20:59 Lorazepam (Ativan 2mg/ml 1ml) 0.5 mg Q4H PRN IV For Anxiety 11/22/17 17:00 11/28/17 16:59 Morphine Sulfate (Morphine Sulfate) 2 mg Q4H PRN IVP For Pain Scale 7-10 11/22/17 17:00 11/29/17 12:59 11/22/17 18:07 Ondansetron HCl (Zofran) 4 mg Q6H PRN IVP Nausea & Vomiting 11/22/17 17:00 12/21/17 16:59 Topiramate (Topamax) 100 mg FOUR TIMES A DAY ORAL 11/22/17 18:00 12/21/17 17:59 11/22/17 18:16 Trazodone HCl (Desyrel) 200 mg BEDTIME ORAL 11/22/17 21:00 12/21/17 20:59 Ana Cristina Camara M.D. Nov 22, 2017 20:32
[2017-11-22] MEDS: TraZODone 100mg tab ORAL SCH (21:25)
[2017-11-23 00:08] VITALS: BP 135/74
[2017-11-23 04:00] VITALS: BP 127/67
--- NOTE | 2017-11-23 05:00 | History and Physical Report ---
DATE OF ADMISSION: 11/22/2017 CHIEF COMPLAINT: The patient is a 67-year-old white female, presents with chief complaint of altered mental status. HISTORY OF PRESENT ILLNESS: The patient herself is unable to contribute much to the History and Physical. Most of the History and Physical is obtained from the patient's chart. Apparently, the patient has a caregiver, who comes in a couple times of week. The patient was found on the floor on . The patient was found by the caregiver. It is unknown how long the patient was on the floor. The patient presented to [place] emergency room. The patient was noted to be taking oxycodone. The patient received Narcan by EMS. The patient is somewhat more arousable with Narcan. The patient is admitted with altered mental status for presumed opiate overdose. REVIEW OF SYSTEMS: Unable to assess, secondary to the patient's mental condition. PAST MEDICAL HISTORY: Significant for: 1. Depression. 2. Chronic pain syndrome. PAST SURGICAL HISTORY: Significant for bladder surgery. CURRENT MEDICATIONS: 1. Tylenol 650 mg p.o. q.4 h. p.r.n. 2. Acetazolamide 250 mg two tablets p.o. three times daily. 3. Acetazolamide 750 mg p.o. at bedtime. 4. Aspirin 81 mg p.o. daily. 5. Celebrex 200 mg p.o. twice daily. 6. Cymbalta 60 mg p.o. daily. 7. Lactulose 45 mg p.o. at bedtime. 8. Methazolamide 50 mg p.o. four times daily. 9. Oxycodone 20 mg p.o. three times daily. 10. MiraLax 17 g p.o. daily. 11. Potassium chloride 10 mEq p.o. four times daily. 12. Topamax 100 mg p.o. four times daily. 13. Trazodone 100 mg p.o. at bedtime. 14. Ambien 10 mg p.o. at bedtime. ALLERGIES: To corticosteroids. SOCIAL HISTORY: The patient lives alone. Tobacco and alcohol use are unknown. PHYSICAL EXAMINATION: VITAL SIGNS: Temperature 97.0, respirations 22, pulse 69 to 82, and blood pressure 135/65. GENERAL: The patient is a well-developed and well-nourished white female, in no apparent distress. HEENT: Eyes, pupils are equal and responsive to light and accommodation. Extraocular movements are intact. NECK: Supple without lymphadenopathy. CHEST: Lungs are clear to auscultation bilaterally without wheezes or rales. CARDIOVASCULAR: Regular rate S1, S2. No murmurs, rubs, or gallops. ABDOMEN: Soft, nontender, and nondistended. Positive bowel sounds. No evidence of hepatosplenomegaly. Currently, no rebound or guarding noted. EXTREMITIES: Negative for clubbing, cyanosis, or edema. RECTAL/GENITAL: Refused. NEUROLOGIC: Cranial nerves II through XII are grossly intact without focal deficits. LABORATORY STUDIES: WBC is 9.5, hemoglobin 14.4, hematocrit 45.3, and platelets 218,000. Sodium is 137, potassium 5.0, chloride 104, CO2 22, BUN 47, creatinine 1.3, and glucose 178. Urine toxicology was negative for opiates. ASSESSMENT: This is a 67-year-old white female with: 1. Altered mental status. 2. Depression. 3. Chronic pain syndrome. 4. Probable overdose of opiates. TREATMENT: 1. Altered mental status, probably secondary to opiate overdose. The patient responded to Narcan. A Neurology consultation is pending to rule out acute cerebrovascular accident. A Psychiatric consultation is pending. 2. Depression. Continue Cymbalta and trazodone as above. Jamin Martinez M.D. DR: Valentin JOB#: [id number] CC:
[2017-11-23] MEDS: Morphine Sulfate 2mg/ml Inj IVP PRN ×4 (05:18→21:04)
[2017-11-23 08:00] VITALS: BP 155/77
[2017-11-23 08:27] LABS: BASOPHILS % (AUTO) 0.7 % (0.0-2.0); EOSINOPHILS % (AUTO) 2.2 % (0.0-3.0); HEMOGLOBIN 12.1 G/DL (12.0-16.0); LYMPHOCYTES % (AUTO) 26.7 % (20.0-45.0); MEAN CORPUSCULAR VOLUME 90 FL (80-99); MONOCYTES % (AUTO) 8.4 % (1.0-10.0); PLATELET COUNT 185 K/UL (150-450); RED BLOOD COUNT 4.11 M/UL (4.20-5.40); RED CELL DISTRIBUTION WIDTH 13.7 % (11.6-14.8); WHITE BLOOD COUNT 7.7 K/UL (4.8-10.8)
[2017-11-23 08:49] LABS: ALANINE AMINOTRANSFERASE 167 U/L (12-78); ALKALINE PHOSPHATASE 69 U/L (46-116); ANION GAP 6 mmol/L (5-15); ASPARTATE AMINO TRANSFERASE 37 U/L (15-37); BILIRUBIN,TOTAL 0.4 MG/DL (0.2-1.0); BLOOD UREA NITROGEN 17 mg/dL (7-18); CALCIUM 8.3 MG/DL (8.5-10.1); CARBON DIOXIDE 28 MMOL/L (21-32); CHLORIDE 110 MMOL/L (98-107); CREATININE 0.6 MG/DL (0.55-1.30); POTASSIUM 4.1 MMOL/L (3.5-5.1); SODIUM 144 MMOL/L (136-145)
[2017-11-23] MEDS: DULoxetine 30mg cap ORAL SCH (09:33)
[2017-11-23] MEDS: Topiramate 100mg tab ORAL SCH ×4 (09:33→20:09)
[2017-11-23] MEDS: Aspirin Baby 81mg ORAL SCH (09:33)
[2017-11-23] MEDS: Heparin 5000 units/ml inj SUBQ SCH ×2 (09:34→20:13)
--- NOTE | 2017-11-23 10:12 | Pulmonology Progress Note ---
Assessment/Plan Problems: (1) Altered mental status (2) Drug overdose (3) Psychiatric care (4) Knee pain, left Assessment/Plan xr of hip ordered awaiting neuro evaluation symptomatic treatment resume feeding dvt porphylaxis check electrolytes pt/ot med/surg Subjective ROS Limited/Unobtainable: No Allergies: Coded Allergies: CORTICOSTEROIDS (GLUCOCORTICOIDS) (Verified Allergy, Unknown, 11/17/17) Objective Last 24 Hour Vital Signs Date Time Temp Pulse Resp B/P (MAP) Pulse Ox O2 Delivery O2 Flow Rate FiO2 11/23/17 08:00 97.5 60 20 155/77 96 Room Air 97.5 11/23/17 04:00 96.9 66 20 127/67 94 Room Air 96.9 11/23/17 00:08 97.2 66 20 135/74 93 Room Air 97.2 11/22/17 20:30 97.3 70 20 155/82 93 Room Air 97.3 11/22/17 15:54 98.4 68 20 141/86 92 Room Air 98.4 11/22/17 14:34 98.1 11/22/17 14:04 98.1 11/22/17 12:00 62 11/22/17 12:00 98.1 72 20 116/72 93 Room Air 98.1 Intake and Output 11/22/17 11/23/17 19:00 07:00 Intake Total 610 ml 600 ml Output Total 150 ml Balance 610 ml 450 ml Intake Oral 160 ml IV Total 450 ml 600 ml Output Urine Total 150 ml # Voids 3 2 Objective General Appearance: WD/WN HEENT: normocephalic, atraumatic Respiratory/Chest: chest wall non-tender, normal breath sounds Breasts: no masses Cardiovascular: normal peripheral pulses Abdomen: normal bowel sounds, soft, non tender, non distended, no scars Extremities: no cyanosis Skin: no rash, no ulcers Microbiology Date/Time Source Procedure Growth Status 11/21/17 11:05 Blood Blood Culture - Final Bacillus Sp Not B. Anthracis Complete 11/21/17 11:00 Blood Blood Culture - Preliminary NO GROWTH AFTER 24 HOURS Resulted 11/21/17 11:05 Nasal Nares Influenza Types A,B Antigen (MIR) - Final Complete Laboratory Tests 11/23/17 06:40: White Blood Count 7.7, Red Blood Count 4.11L, Hemoglobin 12.1, Hematocrit 37.0, Mean Corpuscular Volume 90, Mean Corpuscular Hemoglobin 29.3, Mean Corpuscular Hemoglobin Concent 32.6, Red Cell Distribution Width 13.7, Platelet Count 185, Mean Platelet Volume 5.9L, Neutrophils (%) (Auto) 62.0, Lymphocytes (%) (Auto) 26.7, Monocytes (%) (Auto) 8.4, Eosinophils (%) (Auto) 2.2, Basophils (%) (Auto ) 0.7, Sodium Level 144, Potassium Level 4.1, Chloride Level 110H, Carbon Dioxide Level 28, Anion Gap 6, Blood Urea Nitrogen 17, Creatinine 0.6, Estimat Glomerular Filtration Rate > 60, Glucose Level 96, Calcium Level 8.3L, Total Bilirubin 0.4, Aspartate Amino Transf (AST/SGOT) 37, Alanine Aminotransferase ( ALT/SGPT) 167H, Alkaline Phosphatase 69, Total Protein 6.0L, Albumin 3.0L, Globulin 3.0, Albumin/Globulin Ratio 1.0 Current Medications Medications (Trade) Dose Ordered Sig/Karis Route PRN Reason Start Time Stop Time Status Last Admin Dose Admin Aspirin (ASA) 81 mg DAILY ORAL 11/23/17 09:00 12/22/17 08:59 11/23/17 09:33 Dextrose (Dextrose 50%) STAT PRN IV Hypoglycemia 11/22/17 17:00 12/22/17 16:59 Dextrose/Sodium Chloride 1,000 ml @ 50 mls/hr Q20H IV 11/22/17 17:15 12/21/17 17:14 11/22/17 18:17 Duloxetine HCl (Cymbalta) 60 mg DAILY ORAL 11/23/17 09:00 12/22/17 08:59 11/23/17 09:33 Heparin Sodium (Porcine) (Heparin 5000 units/ml) 5,000 units EVERY 12 HOURS SUBQ 11/22/17 21:00 12/21/17 20:59 11/23/17 09:34 Lorazepam (Ativan 2mg/ml 1ml) 0.5 mg Q4H PRN IV For Anxiety 11/22/17 17:00 11/28/17 16:59 Morphine Sulfate (Morphine Sulfate) 2 mg Q4H PRN IVP For Pain Scale 7-10 11/22/17 17:00 11/29/17 12:59 11/23/17 09:33 Ondansetron HCl (Zofran) 4 mg Q6H PRN IVP Nausea & Vomiting 11/22/17 17:00 12/21/17 16:59 Topiramate (Topamax) 100 mg FOUR TIMES A DAY ORAL 11/22/17 18:00 12/21/17 17:59 11/23/17 09:33 Trazodone HCl (Desyrel) 200 mg BEDTIME ORAL 11/22/17 21:00 12/21/17 20:59 11/22/17 21:25 MILA ADRIAN Nov 23, 2017 10:12
[2017-11-23 12:00] VITALS: BP 165/74
[2017-11-23] MEDS: D5 1/2NS 1,000 ML IV SCH (13:30)
[2017-11-23 16:00] VITALS: BP 168/80
[2017-11-23] MEDS ORDERED: D5 1/2NS 1000ml IV ONE (17:19)
--- NOTE | 2017-11-23 17:19 | Internal Med Progress Note ---
Subjective Date of Service: Nov 23, 2017 Physician Name Lamont Alba Attending Physician Jackson Bowers MD Current Medications Medications (Trade) Dose Ordered Sig/Karis Route PRN Reason Start Time Stop Time Status Last Admin Dose Admin Aspirin (ASA) 81 mg DAILY ORAL 11/23/17 09:00 12/22/17 08:59 11/23/17 09:33 Dextrose (Dextrose 50%) STAT PRN IV Hypoglycemia 11/22/17 17:00 12/22/17 16:59 Dextrose/Sodium Chloride 1,000 ml @ 50 mls/hr Q20H IV 11/22/17 17:15 12/21/17 17:14 11/23/17 13:30 Duloxetine HCl (Cymbalta) 60 mg DAILY ORAL 11/23/17 09:00 12/22/17 08:59 11/23/17 09:33 Heparin Sodium (Porcine) (Heparin 5000 units/ml) 5,000 units EVERY 12 HOURS SUBQ 11/22/17 21:00 12/21/17 20:59 11/23/17 09:34 Lorazepam (Ativan 2mg/ml 1ml) 0.5 mg Q4H PRN IV For Anxiety 11/22/17 17:00 11/28/17 16:59 Morphine Sulfate (Morphine Sulfate) 2 mg Q4H PRN IVP For Pain Scale 7-10 11/22/17 17:00 11/29/17 12:59 11/23/17 16:44 Ondansetron HCl (Zofran) 4 mg Q6H PRN IVP Nausea & Vomiting 11/22/17 17:00 12/21/17 16:59 Topiramate (Topamax) 100 mg FOUR TIMES A DAY ORAL 11/22/17 18:00 12/21/17 17:59 11/23/17 13:30 Trazodone HCl (Desyrel) 200 mg BEDTIME ORAL 11/22/17 21:00 12/21/17 20:59 11/22/17 21:25 Allergies: Coded Allergies: CORTICOSTEROIDS (GLUCOCORTICOIDS) (Verified Allergy, Unknown, 11/17/17) ROS Limited/Unobtainable: Yes Subjective 67 YO F admitted with altered mental status due to probable opiate overdose. Cover for Int [facility]-Dr Bowers Objective Last Vital Signs Date Time Temp Pulse Resp B/P (MAP) Pulse Ox O2 Delivery O2 Flow Rate FiO2 11/23/17 16:00 98.2 71 18 168/80 92 Room Air 98.2 11/21/17 12:22 2.0 General Appearance: WD/WN, no apparent distress EENT: PERRL/EOMI, normal ENT inspection Neck: non-tender, normal alignment, supple, normal inspection Cardiovascular: normal peripheral pulses, normal rate, regular rhythm, no gallop/murmur, no JVD Respiratory/Chest: chest wall non-tender, lungs clear, normal breath sounds, no respiratory distress, no accessory muscle use Abdomen: normal bowel sounds, non tender, soft, no organomegaly, no mass Extremities: normal range of motion, non-tender Skin: normal pigmentation, warm/dry Laboratory Tests Test 11/23/17 06:40 White Blood Count 7.7 K/UL (4.8-10.8) Red Blood Count 4.11 M/UL (4.20-5.40) L Hemoglobin 12.1 G/DL (12.0-16.0) Hematocrit 37.0 % (37.0-47.0) Mean Corpuscular Volume 90 FL (80-99) Mean Corpuscular Hemoglobin 29.3 PG (27.0-31.0) Mean Corpuscular Hemoglobin Concent 32.6 G/DL (32.0-36.0) Red Cell Distribution Width 13.7 % (11.6-14.8) Platelet Count 185 K/UL (150-450) Mean Platelet Volume 5.9 FL (6.5-10.1) L Neutrophils (%) (Auto) 62.0 % (45.0-75.0) Lymphocytes (%) (Auto) 26.7 % (20.0-45.0) Monocytes (%) (Auto) 8.4 % (1.0-10.0) Eosinophils (%) (Auto) 2.2 % (0.0-3.0) Basophils (%) (Auto) 0.7 % (0.0-2.0) Sodium Level 144 MMOL/L (136-145) Potassium Level 4.1 MMOL/L (3.5-5.1) Chloride Level 110 MMOL/L (98-107) H Carbon Dioxide Level 28 MMOL/L (21-32) Anion Gap 6 mmol/L (5-15) Blood Urea Nitrogen 17 mg/dL (7-18) Creatinine 0.6 MG/DL (0.55-1.30) Estimat Glomerular Filtration Rate > 60 mL/min (>60) Glucose Level 96 MG/DL (74-106) Calcium Level 8.3 MG/DL (8.5-10.1) L Total Bilirubin 0.4 MG/DL (0.2-1.0) Aspartate Amino Transf (AST/SGOT) 37 U/L (15-37) Alanine Aminotransferase (ALT/SGPT) 167 U/L (12-78) H Alkaline Phosphatase 69 U/L (46-116) Total Protein 6.0 G/DL (6.4-8.2) L Albumin 3.0 G/DL (3.4-5.0) L Globulin 3.0 g/dL Albumin/Globulin Ratio 1.0 (1.0-2.7) Microbiology Date/Time Source Procedure Growth Status 11/21/17 11:05 Blood Blood Culture - Final Bacillus Sp Not B. Anthracis Complete 11/21/17 11:00 Blood Blood Culture - Preliminary NO GROWTH AFTER 24 HOURS Resulted 11/21/17 11:05 Nasal Nares Influenza Types A,B Antigen (MIR) - Final Complete Intake and Output 11/22/17 11/23/17 19:00 07:00 Intake Total 610 ml 600 ml Output Total 150 ml Balance 610 ml 450 ml Intake Oral 160 ml IV Total 450 ml 600 ml Output Urine Total 150 ml # Voids 3 2 Assessment/Plan Problem List: (1) Depression Assessment & Plan: See psych eval (2) Hypertension Assessment & Plan: Start lisinopril. (3) Drug overdose Assessment & Plan: S/P narcan (4) Altered mental status Status: not improved LAMONT ALBA Nov 23, 2017 17:19
[2017-11-23] MEDS: Lisinopril 10mg tab ORAL SCH (17:28)
[2017-11-23] MEDS: TraZODone 100mg tab ORAL SCH (20:09)
[2017-11-23 20:16] VITALS: BP 163/80
--- NOTE | 2017-11-24 00:06 | General Progress Note ---
Assessment/Plan Status: stable Assessment/Plan opioid dependence anxiety no meds Subjective Date patient seen: Nov 23, 2017 Neurologic/Psychiatric: Reports: anxiety, depressed, emotional problems Allergies: Coded Allergies: CORTICOSTEROIDS (GLUCOCORTICOIDS) (Verified Allergy, Unknown, 11/17/17) Objective Last 24 Hour Vital Signs Date Time Temp Pulse Resp B/P (MAP) Pulse Ox O2 Delivery O2 Flow Rate FiO2 11/23/17 21:34 97.5 11/23/17 21:04 97.5 11/23/17 20:16 97.5 81 18 163/80 94 97.5 11/23/17 20:09 163/80 11/23/17 17:28 168/80 11/23/17 16:00 98.2 71 18 168/80 92 Room Air 98.2 11/23/17 12:00 99.0 65 20 165/74 94 Room Air 99.0 11/23/17 08:00 97.5 60 20 155/77 96 Room Air 97.5 11/23/17 04:00 96.9 66 20 127/67 94 Room Air 96.9 11/23/17 00:08 97.2 66 20 135/74 93 Room Air 97.2 Intake and Output 11/23/17 11/24/17 19:00 07:00 Intake Total 650 ml 150 ml Balance 650 ml 150 ml Intake Oral 600 ml IV Total 50 ml 150 ml # Voids 4 Laboratory Tests 11/23/17 06:40: White Blood Count 7.7, Red Blood Count 4.11L, Hemoglobin 12.1, Hematocrit 37.0, Mean Corpuscular Volume 90, Mean Corpuscular Hemoglobin 29.3, Mean Corpuscular Hemoglobin Concent 32.6, Red Cell Distribution Width 13.7, Platelet Count 185, Mean Platelet Volume 5.9L, Neutrophils (%) (Auto) 62.0, Lymphocytes (%) (Auto) 26.7, Monocytes (%) (Auto) 8.4, Eosinophils (%) (Auto) 2.2, Basophils (%) (Auto ) 0.7, Sodium Level 144, Potassium Level 4.1, Chloride Level 110H, Carbon Dioxide Level 28, Anion Gap 6, Blood Urea Nitrogen 17, Creatinine 0.6, Estimat Glomerular Filtration Rate > 60, Glucose Level 96, Calcium Level 8.3L, Total Bilirubin 0.4, Aspartate Amino Transf (AST/SGOT) 37, Alanine Aminotransferase ( ALT/SGPT) 167H, Alkaline Phosphatase 69, Total Protein 6.0L, Albumin 3.0L, Globulin 3.0, Albumin/Globulin Ratio 1.0 Height (Feet): 5 Height (Inches): 6.00 Weight (Pounds): 195 General Appearance: no apparent distress, alert Neurologic: oriented x 3, responsive, depressed affect Ana Cristina Camara M.D. Nov 24, 2017 00:06
[2017-11-24 00:15] VITALS: BP 121/71
[2017-11-24] MEDS: Morphine Sulfate 2mg/ml Inj IVP PRN ×3 (01:05→11:01)
[2017-11-24 04:35] VITALS: BP 110/73
[2017-11-24 08:00] VITALS: BP 131/69
[2017-11-24 08:24] LABS: BASOPHILS % (AUTO) 0.8 % (0.0-2.0); EOSINOPHILS % (AUTO) 2.9 % (0.0-3.0); HEMATOCRIT 37.8 % (37.0-47.0); HEMOGLOBIN 12.2 G/DL (12.0-16.0); LYMPHOCYTES % (AUTO) 40.3 % (20.0-45.0); MEAN CORPUSCULAR VOLUME 90 FL (80-99); MONOCYTES % (AUTO) 10.4 % (1.0-10.0); NEUTROPHILS % (AUTO) 45.6 % (45.0-75.0); PLATELET COUNT 205 K/UL (150-450); RED CELL DISTRIBUTION WIDTH 13.9 % (11.6-14.8)
[2017-11-24] MEDS: Aspirin Baby 81mg ORAL SCH (09:27)
[2017-11-24] MEDS: Topiramate 100mg tab ORAL SCH ×4 (09:27→20:58)
[2017-11-24] MEDS: DULoxetine 30mg cap ORAL SCH (09:28)
[2017-11-24] MEDS: Lisinopril 10mg tab ORAL SCH (09:28)
[2017-11-24] MEDS: D5 1/2NS 1,000 ML IV SCH (09:28)
[2017-11-24] MEDS: Heparin 5000 units/ml inj SUBQ SCH ×2 (09:29→20:58)
[2017-11-24 09:52] LABS: ALANINE AMINOTRANSFERASE 148 U/L (12-78); ALBUMIN/GLOBULIN RATIO 1.1 (1.0-2.7); ALKALINE PHOSPHATASE 70 U/L (46-116); ANION GAP 5 mmol/L (5-15); ASPARTATE AMINO TRANSFERASE 31 U/L (15-37); BILIRUBIN,TOTAL 0.3 MG/DL (0.2-1.0); BLOOD UREA NITROGEN 18 mg/dL (7-18); CALCIUM 8.4 MG/DL (8.5-10.1); CARBON DIOXIDE 29 MMOL/L (21-32); CHLORIDE 109 MMOL/L (98-107); CREATININE 0.7 MG/DL (0.55-1.30); PHOSPHORUS 4.2 MG/DL (2.5-4.9); POTASSIUM 4.5 MMOL/L (3.5-5.1); SODIUM 143 MMOL/L (136-145)
--- NOTE | 2017-11-24 10:52 | Diagnostic Imaging Report ---
Indication: Left hip pain Technique: XRAY Hip Routine 2v+ L Comparison: None Findings: There is no radiographically evident fracture or dislocation. Degenerative spurring of the left hip is noted. There is osteopenia. Impression: No radiographic evident acute osseous abnormality. Degenerative spurring of the left hip. Osteopenia.
--- NOTE | 2017-11-24 11:29 | Diagnostic Imaging Report ---
Indication: Right heel pain Technique: XRAY Heel Min 2v right Comparison: None Findings: There is no radiographically evident fracture or dislocation. There is apparent thickening of the Achilles tendon with subcentimeter calcifications of the distal tendon. Posterior calcaneal enthesophyte is seen. Degenerative changes of the midfoot are noted. Impression: No acute osseous abnormality. Apparent thickening of the Achilles tendon with calcifications of the distal tendon suggestive of underlying tendinopathy and chronic dystrophic calcification/interstitial injury. Further evaluation with MRI recommended as indicated.
--- NOTE | 2017-11-24 11:30 | Diagnostic Imaging Report ---
Indication: Left heel pain Technique: XRAY Heel Min 2v Left Comparison: None Findings: There is no radiographically evident fracture or dislocation. There is apparent thickening of the Achilles tendon with linear interstitial calcifications of the distal tendon. Degenerative changes of the midfoot are noted. Impression: No acute osseous abnormality. Apparent thickening of the Achilles tendon with calcifications of the distal tendon suggestive of underlying tendinopathy and chronic dystrophic calcification/interstitial injury. Further evaluation with MRI recommended as indicated.
[2017-11-24 12:00] VITALS: BP 135/76
--- NOTE | 2017-11-24 12:04 | Pulmonology Progress Note ---
Assessment/Plan Problems: (1) Altered mental status (2) Drug overdose (3) Psychiatric care (4) Knee pain, left Assessment/Plan xr of hip was negative she wants xr of her ribs awaiting neuro evaluation symptomatic treatment resume feeding dvt porphylaxis check electrolytes pt/ot med/surg social service note appreciated Subjective ROS Limited/Unobtainable: No Interval Events: xr of hip done yesterday, negative. she wantys rib xr now Allergies: Coded Allergies: CORTICOSTEROIDS (GLUCOCORTICOIDS) (Verified Allergy, Unknown, 11/17/17) Objective Last 24 Hour Vital Signs Date Time Temp Pulse Resp B/P (MAP) Pulse Ox O2 Delivery O2 Flow Rate FiO2 11/24/17 11:01 96.6 11/24/17 09:28 131/69 11/24/17 07:00 96.6 11/24/17 06:30 96.6 11/24/17 04:35 96.6 50 17 110/73 93 96.6 11/24/17 01:05 98.1 11/24/17 00:15 98.1 61 19 121/71 94 98.1 11/23/17 21:04 97.5 11/23/17 20:16 97.5 81 18 163/80 94 97.5 11/23/17 20:09 163/80 11/23/17 17:28 168/80 11/23/17 16:00 98.2 71 18 168/80 92 Room Air 98.2 Intake and Output 11/23/17 11/24/17 19:00 07:00 Intake Total 650 ml 1030 ml Balance 650 ml 1030 ml Intake Oral 600 ml 480 ml IV Total 50 ml 550 ml # Voids 4 3 Objective General Appearance: WD/WN HEENT: normocephalic, atraumatic Respiratory/Chest: chest wall non-tender, normal breath sounds Breasts: no masses Cardiovascular: normal peripheral pulses Abdomen: normal bowel sounds, soft, non tender, non distended, no scars Extremities: no cyanosis Skin: no rash, no ulcers Laboratory Tests 11/24/17 06:40: White Blood Count 6.0, Red Blood Count 4.20, Hemoglobin 12.2, Hematocrit 37.8, Mean Corpuscular Volume 90, Mean Corpuscular Hemoglobin 29.1, Mean Corpuscular Hemoglobin Concent 32.4, Red Cell Distribution Width 13.9, Platelet Count 205, Mean Platelet Volume 5.7L, Neutrophils (%) (Auto) 45.6, Lymphocytes (%) (Auto) 40.3, Monocytes (%) (Auto) 10.4H, Eosinophils (%) (Auto) 2.9, Basophils (%) ( Auto) 0.8, Sodium Level 143, Potassium Level 4.5, Chloride Level 109H, Carbon Dioxide Level 29, Anion Gap 5, Blood Urea Nitrogen 18, Creatinine 0.7, Estimat Glomerular Filtration Rate > 60, Glucose Level 100, Calcium Level 8.4L, Phosphorus Level 4.2, Magnesium Level 2.2, Total Bilirubin 0.3, Aspartate Amino Transf (AST/SGOT) 31, Alanine Aminotransferase (ALT/SGPT) 148H, Alkaline Phosphatase 70, Total Protein 5.8L, Albumin 3.0L, Globulin 2.8, Albumin/ Globulin Ratio 1.1 Current Medications Medications (Trade) Dose Ordered Sig/Karis Route PRN Reason Start Time Stop Time Status Last Admin Dose Admin Aspirin (ASA) 81 mg DAILY ORAL 11/23/17 09:00 12/22/17 08:59 11/24/17 09:27 Clonidine HCl (Catapres Tab) 0.1 mg Q4H PRN ORAL For High Blood Pressure 11/23/17 17:15 12/23/17 17:14 11/23/17 20:09 Dextrose (Dextrose 50%) STAT PRN IV Hypoglycemia 11/22/17 17:00 12/22/17 16:59 Dextrose/Sodium Chloride 1,000 ml @ 50 mls/hr Q20H IV 11/22/17 17:15 12/21/17 17:14 11/24/17 09:28 Duloxetine HCl (Cymbalta) 60 mg DAILY ORAL 11/23/17 09:00 12/22/17 08:59 11/24/17 09:28 Heparin Sodium (Porcine) (Heparin 5000 units/ml) 5,000 units EVERY 12 HOURS SUBQ 11/22/17 21:00 12/21/17 20:59 11/24/17 09:29 Lisinopril (Zestril) 10 mg DAILY ORAL 11/23/17 17:30 12/23/17 17:29 11/24/17 09:28 Lorazepam (Ativan 2mg/ml 1ml) 0.5 mg Q4H PRN IV For Anxiety 11/22/17 17:00 11/28/17 16:59 Morphine Sulfate (Morphine Sulfate) 4 mg Q4H PRN IVP Severe Pain 11/24/17 11:45 12/01/17 11:44 Ondansetron HCl (Zofran) 4 mg Q6H PRN IVP Nausea & Vomiting 11/22/17 17:00 12/21/17 16:59 Topiramate (Topamax) 100 mg FOUR TIMES A DAY ORAL 11/22/17 18:00 12/21/17 17:59 11/24/17 09:27 Trazodone HCl (Desyrel) 200 mg BEDTIME ORAL 11/22/17 21:00 12/21/17 20:59 11/23/17 20:09 MILA ADRIAN 11, 2018 12:04
[2017-11-24] MEDS: Morphine Sulfate 4mg/ml Inj IVP PRN ×3 (14:53→23:53)
[2017-11-24 16:00] VITALS: BP 135/76
--- NOTE | 2017-11-24 16:38 | Cardiology Report ---
APPROVED REPORT EKG Measurement Heart [id number] Normal sinus rhythm Possible Left atrial enlargement Nonspecific ST and T wave abnormality Abnormal ECG
--- NOTE | 2017-11-24 17:05 | Internal Med Progress Note ---
Subjective Date of Service: Nov 24, 2017 Physician Name Jamin Alba Attending Physician Jackson Bowers MD Current Medications Medications (Trade) Dose Ordered Sig/Karis Route PRN Reason Start Time Stop Time Status Last Admin Dose Admin Aspirin (ASA) 81 mg DAILY ORAL 11/23/17 09:00 12/22/17 08:59 11/24/17 09:27 Clonidine HCl (Catapres Tab) 0.1 mg Q4H PRN ORAL For High Blood Pressure 11/23/17 17:15 12/23/17 17:14 11/23/17 20:09 Dextrose (Dextrose 50%) STAT PRN IV Hypoglycemia 11/22/17 17:00 12/22/17 16:59 Dextrose/Sodium Chloride 1,000 ml @ 50 mls/hr Q20H IV 11/22/17 17:15 12/21/17 17:14 11/24/17 09:28 Duloxetine HCl (Cymbalta) 60 mg DAILY ORAL 11/23/17 09:00 12/22/17 08:59 11/24/17 09:28 Heparin Sodium (Porcine) (Heparin 5000 units/ml) 5,000 units EVERY 12 HOURS SUBQ 11/22/17 21:00 12/21/17 20:59 11/24/17 09:29 Lisinopril (Zestril) 10 mg DAILY ORAL 11/23/17 17:30 12/23/17 17:29 11/24/17 09:28 Lorazepam (Ativan 2mg/ml 1ml) 0.5 mg Q4H PRN IV For Anxiety 11/22/17 17:00 11/28/17 16:59 Morphine Sulfate (Morphine Sulfate) 4 mg Q4H PRN IVP Severe Pain 11/24/17 11:45 12/01/17 11:44 11/24/17 14:53 Ondansetron HCl (Zofran) 4 mg Q6H PRN IVP Nausea & Vomiting 11/22/17 17:00 12/21/17 16:59 Topiramate (Topamax) 100 mg FOUR TIMES A DAY ORAL 11/22/17 18:00 12/21/17 17:59 11/24/17 12:21 Trazodone HCl (Desyrel) 200 mg BEDTIME ORAL 11/22/17 21:00 12/21/17 20:59 11/23/17 20:09 Allergies: Coded Allergies: CORTICOSTEROIDS (GLUCOCORTICOIDS) (Verified Allergy, Unknown, 11/17/17) ROS Limited/Unobtainable: No Constitutional: Reports: no symptoms HEENT: Reports: no symptoms Cardiovascular: Reports: no symptoms Respiratory: Reports: no symptoms Gastrointestinal/Abdominal: Reports: no symptoms Genitourinary: Reports: no symptoms Neurologic/Psychiatric: Reports: no symptoms Subjective 67 YO F admitted with altered mental status due to probable opiate overdose. Cover for Int Med-Dr Bowers Objective Last Vital Signs Date Time Temp Pulse Resp B/P (MAP) Pulse Ox O2 Delivery O2 Flow Rate FiO2 11/24/17 14:53 96.6 11/24/17 09:28 131/69 11/24/17 04:35 50 17 93 11/23/17 16:00 Room Air 11/21/17 12:22 2.0 Laboratory Tests Test 11/24/17 06:40 White Blood Count 6.0 K/UL (4.8-10.8) Red Blood Count 4.20 M/UL (4.20-5.40) Hemoglobin 12.2 G/DL (12.0-16.0) Hematocrit 37.8 % (37.0-47.0) Mean Corpuscular Volume 90 FL (80-99) Mean Corpuscular Hemoglobin 29.1 PG (27.0-31.0) Mean Corpuscular Hemoglobin Concent 32.4 G/DL (32.0-36.0) Red Cell Distribution Width 13.9 % (11.6-14.8) Platelet Count 205 K/UL (150-450) Mean Platelet Volume 5.7 FL (6.5-10.1) L Neutrophils (%) (Auto) 45.6 % (45.0-75.0) Lymphocytes (%) (Auto) 40.3 % (20.0-45.0) Monocytes (%) (Auto) 10.4 % (1.0-10.0) H Eosinophils (%) (Auto) 2.9 % (0.0-3.0) Basophils (%) (Auto) 0.8 % (0.0-2.0) Sodium Level 143 MMOL/L (136-145) Potassium Level 4.5 MMOL/L (3.5-5.1) Chloride Level 109 MMOL/L (98-107) H Carbon Dioxide Level 29 MMOL/L (21-32) Anion Gap 5 mmol/L (5-15) Blood Urea Nitrogen 18 mg/dL (7-18) Creatinine 0.7 MG/DL (0.55-1.30) Estimat Glomerular Filtration Rate > 60 mL/min (>60) Glucose Level 100 MG/DL (74-106) Calcium Level 8.4 MG/DL (8.5-10.1) L Phosphorus Level 4.2 MG/DL (2.5-4.9) Magnesium Level 2.2 MG/DL (1.8-2.4) Total Bilirubin 0.3 MG/DL (0.2-1.0) Aspartate Amino Transf (AST/SGOT) 31 U/L (15-37) Alanine Aminotransferase (ALT/SGPT) 148 U/L (12-78) H Alkaline Phosphatase 70 U/L (46-116) Total Protein 5.8 G/DL (6.4-8.2) L Albumin 3.0 G/DL (3.4-5.0) L Globulin 2.8 g/dL Albumin/Globulin Ratio 1.1 (1.0-2.7) Intake and Output 11/23/17 11/24/17 19:00 07:00 Intake Total 650 ml 1030 ml Balance 650 ml 1030 ml Intake Oral 600 ml 480 ml IV Total 50 ml 550 ml # Voids 4 3 Objective General Appearance: WD/WN, no apparent distress EENT: PERRL/EOMI, normal ENT inspection Neck: non-tender, normal alignment, supple, normal inspection Cardiovascular: normal peripheral pulses, normal rate, regular rhythm, no gallop/murmur, no JVD Respiratory/Chest: chest wall non-tender, lungs clear, normal breath sounds, no respiratory distress, no accessory muscle use Abdomen: normal bowel sounds, non tender, soft, no organomegaly, no mass Extremities: normal range of motion, non-tender Skin: normal pigmentation, warm/dry Assessment/Plan Problem List: (1) Depression Assessment & Plan: See psych eval (2) Hypertension Assessment & Plan: Start lisinopril. (3) Drug overdose Assessment & Plan: S/P narcan (4) Altered mental status (5) Ventriculo-peritoneal shunt status Assessment & Plan: Await neurology consult Status: not improved JAMIN ALBA Nov 24, 2017 17:05
[2017-11-24 20:00] VITALS: BP 157/74
[2017-11-24] MEDS: TraZODone 100mg tab ORAL SCH (20:58)
[2017-11-25] VITALS: BP 129/64
[2017-11-25 04:00] VITALS: BP 143/61
[2017-11-25] MEDS: Morphine Sulfate 4mg/ml Inj IVP PRN ×5 (04:08→20:51)
[2017-11-25] MEDS: D5 1/2NS 1,000 ML IV SCH ×2 (05:15→13:03)
[2017-11-25 07:55] LABS: BASOPHILS % (AUTO) 1.1 % (0.0-2.0); HEMATOCRIT 37.6 % (37.0-47.0); HEMOGLOBIN 12.1 G/DL (12.0-16.0); LYMPHOCYTES % (AUTO) 41.4 % (20.0-45.0); MEAN CORPUSCULAR VOLUME 90 FL (80-99); MONOCYTES % (AUTO) 9.6 % (1.0-10.0); PLATELET COUNT 194 K/UL (150-450); RED BLOOD COUNT 4.17 M/UL (4.20-5.40); RED CELL DISTRIBUTION WIDTH 14.1 % (11.6-14.8); WHITE BLOOD COUNT 5.7 K/UL (4.8-10.8)
[2017-11-25 08:00] VITALS: BP 137/72
[2017-11-25 08:08] LABS: ALANINE AMINOTRANSFERASE 110 U/L (12-78); ALBUMIN 2.9 G/DL (3.4-5.0); ALBUMIN/GLOBULIN RATIO 0.9 (1.0-2.7); ALKALINE PHOSPHATASE 73 U/L (46-116); ANION GAP 5 mmol/L (5-15); ASPARTATE AMINO TRANSFERASE 29 U/L (15-37); BILIRUBIN,TOTAL 0.3 MG/DL (0.2-1.0); BLOOD UREA NITROGEN 17 mg/dL (7-18); CALCIUM 8.6 MG/DL (8.5-10.1); CARBON DIOXIDE 27 MMOL/L (21-32); CHLORIDE 110 MMOL/L (98-107); CREATININE 0.7 MG/DL (0.55-1.30); PHOSPHORUS 4.1 MG/DL (2.5-4.9); POTASSIUM 4.2 MMOL/L (3.5-5.1); SODIUM 142 MMOL/L (136-145)
[2017-11-25] MEDS: Lisinopril 10mg tab ORAL SCH (08:23)
[2017-11-25] MEDS: Aspirin Baby 81mg ORAL SCH (08:23)
[2017-11-25] MEDS: Topiramate 100mg tab ORAL SCH ×4 (08:23→20:50)
[2017-11-25] MEDS: DULoxetine 30mg cap ORAL SCH (08:23)
[2017-11-25] MEDS: Heparin 5000 units/ml inj SUBQ SCH ×2 (08:25→20:53)
--- NOTE | 2017-11-25 10:39 | Diagnostic Imaging Report ---
Indication: Pain Technique: Multiple views of the left ribs Comparison: none Findings: There are old healed deformities of the left lateral 6 and seventh ribs. No other acute fractures. No evidence of pneumothorax. Ventriculoperitoneal shunt tubing is seen coiled in the upper abdomen Impression: No acute process This agrees with the preliminary interpretation provided overnight by [facility] teleradiology service.
[2017-11-25 12:00] VITALS: BP 145/67
--- NOTE | 2017-11-25 14:25 | Diagnostic Imaging Report ---
Indication: Left knee pain Technique: 2 views of the left knee Comparison: none Findings: Patient is status post total knee arthroplasty. There is good anatomic alignment of the prosthesis and no evidence of significant periprosthetic lucency. There is also a surgical staple in the medial femoral epicondyle. No fractures or dislocations. No suprapatellar effusion Impression: Postsurgical changes, as described No acute process demonstrated
[2017-11-25 16:00] VITALS: BP 132/80
--- NOTE | 2017-11-25 19:08 | Internal Med Progress Note ---
Subjective Date of Service: Nov 25, 2017 Physician Name Jamin Alba Attending Physician Jackson Bowers MD Current Medications Medications (Trade) Dose Ordered Sig/Karis Route PRN Reason Start Time Stop Time Status Last Admin Dose Admin Aspirin (ASA) 81 mg DAILY ORAL 11/23/17 09:00 12/22/17 08:59 11/25/17 08:23 Clonidine HCl (Catapres Tab) 0.1 mg Q4H PRN ORAL For High Blood Pressure 11/23/17 17:15 12/23/17 17:14 11/23/17 20:09 Dextrose (Dextrose 50%) STAT PRN IV Hypoglycemia 11/22/17 17:00 12/22/17 16:59 Dextrose/Sodium Chloride 1,000 ml @ 50 mls/hr Q20H IV 11/22/17 17:15 12/21/17 17:14 11/25/17 13:03 Duloxetine HCl (Cymbalta) 60 mg DAILY ORAL 11/23/17 09:00 12/22/17 08:59 11/25/17 08:23 Heparin Sodium (Porcine) (Heparin 5000 units/ml) 5,000 units EVERY 12 HOURS SUBQ 11/22/17 21:00 12/21/17 20:59 11/25/17 08:25 Lisinopril (Zestril) 10 mg DAILY ORAL 11/23/17 17:30 12/23/17 17:29 11/25/17 08:23 Lorazepam (Ativan 2mg/ml 1ml) 0.5 mg Q4H PRN IV For Anxiety 11/22/17 17:00 11/28/17 16:59 Morphine Sulfate (Morphine Sulfate) 4 mg Q4H PRN IVP Severe Pain 11/24/17 11:45 12/01/17 11:44 11/25/17 16:29 Ondansetron HCl (Zofran) 4 mg Q6H PRN IVP Nausea & Vomiting 11/22/17 17:00 12/21/17 16:59 Topiramate (Topamax) 100 mg FOUR TIMES A DAY ORAL 11/22/17 18:00 12/21/17 17:59 11/25/17 17:12 Trazodone HCl (Desyrel) 200 mg BEDTIME ORAL 11/22/17 21:00 12/21/17 20:59 11/24/17 20:58 Allergies: Coded Allergies: CORTICOSTEROIDS (GLUCOCORTICOIDS) (Verified Allergy, Unknown, 11/17/17) ROS Limited/Unobtainable: No Constitutional: Reports: no symptoms HEENT: Reports: no symptoms Cardiovascular: Reports: no symptoms Respiratory: Reports: no symptoms Gastrointestinal/Abdominal: Reports: no symptoms Genitourinary: Reports: no symptoms Neurologic/Psychiatric: Reports: no symptoms Subjective 67 YO F admitted with altered mental status due to probable opiate overdose. Cover for Int Med-Dr Bowers. Await neurology consult. Objective Last Vital Signs Date Time Temp Pulse Resp B/P (MAP) Pulse Ox O2 Delivery O2 Flow Rate FiO2 11/25/17 16:00 97.2 87 19 132/80 97 Room Air 97.2 11/21/17 12:22 2.0 Laboratory Tests Test 11/25/17 06:38 White Blood Count 5.7 K/UL (4.8-10.8) Red Blood Count 4.17 M/UL (4.20-5.40) L Hemoglobin 12.1 G/DL (12.0-16.0) Hematocrit 37.6 % (37.0-47.0) Mean Corpuscular Volume 90 FL (80-99) Mean Corpuscular Hemoglobin 29.1 PG (27.0-31.0) Mean Corpuscular Hemoglobin Concent 32.2 G/DL (32.0-36.0) Red Cell Distribution Width 14.1 % (11.6-14.8) Platelet Count 194 K/UL (150-450) Mean Platelet Volume 5.5 FL (6.5-10.1) L Neutrophils (%) (Auto) 44.0 % (45.0-75.0) L Lymphocytes (%) (Auto) 41.4 % (20.0-45.0) Monocytes (%) (Auto) 9.6 % (1.0-10.0) Eosinophils (%) (Auto) 4.0 % (0.0-3.0) H Basophils (%) (Auto) 1.1 % (0.0-2.0) Erythrocyte Sedimentation Rate 23 MM/HR (0-30) Sodium Level 142 MMOL/L (136-145) Potassium Level 4.2 MMOL/L (3.5-5.1) Chloride Level 110 MMOL/L (98-107) H Carbon Dioxide Level 27 MMOL/L (21-32) Anion Gap 5 mmol/L (5-15) Blood Urea Nitrogen 17 mg/dL (7-18) Creatinine 0.7 MG/DL (0.55-1.30) Estimat Glomerular Filtration Rate > 60 mL/min (>60) Glucose Level 102 MG/DL (74-106) Calcium Level 8.6 MG/DL (8.5-10.1) Phosphorus Level 4.1 MG/DL (2.5-4.9) Magnesium Level 2.1 MG/DL (1.8-2.4) Total Bilirubin 0.3 MG/DL (0.2-1.0) Aspartate Amino Transf (AST/SGOT) 29 U/L (15-37) Alanine Aminotransferase (ALT/SGPT) 110 U/L (12-78) H Alkaline Phosphatase 73 U/L (46-116) Total Protein 6.1 G/DL (6.4-8.2) L Albumin 2.9 G/DL (3.4-5.0) L Globulin 3.2 g/dL Albumin/Globulin Ratio 0.9 (1.0-2.7) L Intake and Output 11/24/17 11/25/17 19:00 07:00 Intake Total 800 ml 500 ml Balance 800 ml 500 ml Intake Oral 800 ml IV Total 500 ml # Voids 5 5 # Bowel Movements 1 Objective General Appearance: WD/WN, no apparent distress EENT: PERRL/EOMI, normal ENT inspection Neck: non-tender, normal alignment, supple, normal inspection Cardiovascular: normal peripheral pulses, normal rate, regular rhythm, no gallop/murmur, no JVD Respiratory/Chest: chest wall non-tender, lungs clear, normal breath sounds, no respiratory distress, no accessory muscle use Abdomen: normal bowel sounds, non tender, soft, no organomegaly, no mass Extremities: normal range of motion, non-tender Skin: normal pigmentation, warm/dry Assessment/Plan Problem List: (1) Depression Assessment & Plan: See psych eval (2) Hypertension Assessment & Plan: Start lisinopril. (3) Drug overdose Assessment & Plan: S/P narcan (4) Altered mental status (5) Ventriculo-peritoneal shunt status Assessment & Plan: Await neurology consult Status: not improved JAMIN ALBA Nov 25, 2017:08
[2017-11-25 20:00] VITALS: BP 135/70
--- NOTE | 2017-11-25 20:36 | Neurology Progress Note ---
Interim History Interim History ROS Limited/Unobtainable: No Objective Physical Exam Last Vital Signs Date Time Temp Pulse Resp B/P (MAP) Pulse Ox O2 Delivery O2 Flow Rate FiO2 11/25/17 16:00 97.2 87 19 132/80 97 Room Air 97.2 11/21/17 12:22 2.0 Laboratory Tests Test 11/25/17 06:38 White Blood Count 5.7 K/UL (4.8-10.8) Red Blood Count 4.17 M/UL (4.20-5.40) L Hemoglobin 12.1 G/DL (12.0-16.0) Hematocrit 37.6 % (37.0-47.0) Mean Corpuscular Volume 90 FL (80-99) Mean Corpuscular Hemoglobin 29.1 PG (27.0-31.0) Mean Corpuscular Hemoglobin Concent 32.2 G/DL (32.0-36.0) Red Cell Distribution Width 14.1 % (11.6-14.8) Platelet Count 194 K/UL (150-450) Mean Platelet Volume 5.5 FL (6.5-10.1) L Neutrophils (%) (Auto) 44.0 % (45.0-75.0) L Lymphocytes (%) (Auto) 41.4 % (20.0-45.0) Monocytes (%) (Auto) 9.6 % (1.0-10.0) Eosinophils (%) (Auto) 4.0 % (0.0-3.0) H Basophils (%) (Auto) 1.1 % (0.0-2.0) Erythrocyte Sedimentation Rate 23 MM/HR (0-30) Sodium Level 142 MMOL/L (136-145) Potassium Level 4.2 MMOL/L (3.5-5.1) Chloride Level 110 MMOL/L (98-107) H Carbon Dioxide Level 27 MMOL/L (21-32) Anion Gap 5 mmol/L (5-15) Blood Urea Nitrogen 17 mg/dL (7-18) Creatinine 0.7 MG/DL (0.55-1.30) Estimat Glomerular Filtration Rate > 60 mL/min (>60) Glucose Level 102 MG/DL (74-106) Calcium Level 8.6 MG/DL (8.5-10.1) Phosphorus Level 4.1 MG/DL (2.5-4.9) Magnesium Level 2.1 MG/DL (1.8-2.4) Total Bilirubin 0.3 MG/DL (0.2-1.0) Aspartate Amino Transf (AST/SGOT) 29 U/L (15-37) Alanine Aminotransferase (ALT/SGPT) 110 U/L (12-78) H Alkaline Phosphatase 73 U/L (46-116) Total Protein 6.1 G/DL (6.4-8.2) L Albumin 2.9 G/DL (3.4-5.0) L Globulin 3.2 g/dL Albumin/Globulin Ratio 0.9 (1.0-2.7) L Impression/Recommendations Problems: (1) Pseudotumor cerebri (2) Ventriculo-peritoneal shunt status (3) Hypertension (4) Depression (5) Drug overdose Status: stable, not improved Recommendations #[id number] KI MORENO Nov 25, 2017 20:36
[2017-11-25] MEDS: TraZODone 100mg tab ORAL SCH (20:50)
--- NOTE | 2017-11-25 22:20 | Pulmonology Progress Note ---
Assessment/Plan Problems: (1) Altered mental status (2) Drug overdose (3) Psychiatric care (4) Knee pain, left Assessment/Plan xr of hip was negative she wants xr of her ribs awaiting neuro evaluation symptomatic treatment resume feeding dvt porphylaxis check electrolytes pt/ot med/surg social service note appreciated Subjective Allergies: Coded Allergies: CORTICOSTEROIDS (GLUCOCORTICOIDS) (Verified Allergy, Unknown, 11/17/17) Objective Last 24 Hour Vital Signs Date Time Temp Pulse Resp B/P (MAP) Pulse Ox O2 Delivery O2 Flow Rate FiO2 11/25/17 20:00 Room Air 11/25/17 20:00 98.1 64 20 135/70 94 98.1 11/25/17 16:00 97.2 87 19 132/80 97 Room Air 97.2 11/25/17 12:25 97.7 11/25/17 12:00 97.8 61 20 145/67 94 Room Air 97.8 11/25/17 08:24 97.7 11/25/17 08:23 137/72 11/25/17 08:00 98.0 69 20 137/72 93 Room Air 98.0 11/25/17 04:38 97.7 11/25/17 04:08 97.7 11/25/17 04:00 97.3 52 20 143/61 94 97.3 11/25/17 00:00 97.7 55 21 129/64 92 97.7 11/24/17 23:53 98.5 Intake and Output 11/24/17 11/25/17 19:00 07:00 Intake Total 800 ml 500 ml Balance 800 ml 500 ml Intake Oral 800 ml IV Total 500 ml # Voids 5 5 # Bowel Movements 1 Objective General Appearance: WD/WN HEENT: normocephalic, atraumatic Respiratory/Chest: chest wall non-tender, normal breath sounds Breasts: no masses Cardiovascular: normal peripheral pulses Abdomen: normal bowel sounds, soft, non tender, non distended, no scars Extremities: no cyanosis Skin: no rash, no ulcers Laboratory Tests 11/25/17 06:38: White Blood Count 5.7, Red Blood Count 4.17L, Hemoglobin 12.1, Hematocrit 37.6, Mean Corpuscular Volume 90, Mean Corpuscular Hemoglobin 29.1, Mean Corpuscular Hemoglobin Concent 32.2, Red Cell Distribution Width 14.1, Platelet Count 194, Mean Platelet Volume 5.5L, Neutrophils (%) (Auto) 44.0L, Lymphocytes (%) (Auto) 41.4, Monocytes (%) (Auto) 9.6, Eosinophils (%) (Auto) 4.0H, Basophils (%) (Auto ) 1.1, Erythrocyte Sedimentation Rate 23, Sodium Level 142, Potassium Level 4.2 , Chloride Level 110H, Carbon Dioxide Level 27, Anion Gap 5, Blood Urea Nitrogen 17, Creatinine 0.7, Estimat Glomerular Filtration Rate > 60, Glucose Level 102, Calcium Level 8.6, Phosphorus Level 4.1, Magnesium Level 2.1, Total Bilirubin 0.3, Aspartate Amino Transf (AST/SGOT) 29, Alanine Aminotransferase ( ALT/SGPT) 110H, Alkaline Phosphatase 73, Total Protein 6.1L, Albumin 2.9L, Globulin 3.2, Albumin/Globulin Ratio 0.9L Current Medications Medications (Trade) Dose Ordered Sig/Karis Route PRN Reason Start Time Stop Time Status Last Admin Dose Admin Aspirin (ASA) 81 mg DAILY ORAL 11/23/17 09:00 12/22/17 08:59 11/25/17 08:23 Clonidine HCl (Catapres Tab) 0.1 mg Q4H PRN ORAL For High Blood Pressure 11/23/17 17:15 12/23/17 17:14 11/23/17 20:09 Dextrose (Dextrose 50%) STAT PRN IV Hypoglycemia 11/22/17 17:00 12/22/17 16:59 Dextrose/Sodium Chloride 1,000 ml @ 50 mls/hr Q20H IV 11/22/17 17:15 12/21/17 17:14 11/25/17 13:03 Duloxetine HCl (Cymbalta) 60 mg DAILY ORAL 11/23/17 09:00 12/22/17 08:59 11/25/17 08:23 Heparin Sodium (Porcine) (Heparin 5000 units/ml) 5,000 units EVERY 12 HOURS SUBQ 11/22/17 21:00 12/21/17 20:59 11/25/17 20:53 Lisinopril (Zestril) 10 mg DAILY ORAL 11/23/17 17:30 12/23/17 17:29 11/25/17 08:23 Lorazepam (Ativan 2mg/ml 1ml) 0.5 mg Q4H PRN IV For Anxiety 11/22/17 17:00 11/28/17 16:59 Morphine Sulfate (Morphine Sulfate) 4 mg Q4H PRN IVP Severe Pain 11/24/17 11:45 12/01/17 11:44 11/25/17 20:51 Ondansetron HCl (Zofran) 4 mg Q6H PRN IVP Nausea & Vomiting 11/22/17 17:00 12/21/17 16:59 Topiramate (Topamax) 100 mg FOUR TIMES A DAY ORAL 11/22/17 18:00 12/21/17 17:59 11/25/17 20:50 Trazodone HCl (Desyrel) 200 mg BEDTIME ORAL 11/22/17 21:00 12/21/17 20:59 11/25/17 20:50 MILA ADRIAN Nov 25, 2017 22:20
--- NOTE | 2017-11-25 22:44 | General Progress Note ---
Assessment/Plan Status: stable Assessment/Plan opioid dependence anxiety mdd trazodone 50mg qhs Subjective Date patient seen: Nov 25, 2017 Neurologic/Psychiatric: Reports: anxiety, depressed, emotional problems Allergies: Coded Allergies: CORTICOSTEROIDS (GLUCOCORTICOIDS) (Verified Allergy, Unknown, 11/17/17) Subjective the pt mri result:possible over shunt spoke with pt and the pt will f/u with neuro Objective Last 24 Hour Vital Signs Date Time Temp Pulse Resp B/P (MAP) Pulse Ox O2 Delivery O2 Flow Rate FiO2 11/25/17 20:00 Room Air 11/25/17 20:00 98.1 64 20 135/70 94 98.1 11/25/17 16:00 97.2 87 19 132/80 97 Room Air 97.2 11/25/17 12:25 97.7 11/25/17 12:00 97.8 61 20 145/67 94 Room Air 97.8 11/25/17 08:24 97.7 11/25/17 08:23 137/72 11/25/17 08:00 98.0 69 20 137/72 93 Room Air 98.0 11/25/17 04:38 97.7 11/25/17 04:08 97.7 11/25/17 04:00 97.3 52 20 143/61 94 97.3 11/25/17 00:00 97.7 55 21 129/64 92 97.7 11/24/17 23:53 98.5 Intake and Output 11/24/17 11/25/17 19:00 07:00 Intake Total 800 ml 500 ml Balance 800 ml 500 ml Intake Oral 800 ml IV Total 500 ml # Voids 5 5 # Bowel Movements 1 Laboratory Tests 11/25/17 06:38: White Blood Count 5.7, Red Blood Count 4.17L, Hemoglobin 12.1, Hematocrit 37.6, Mean Corpuscular Volume 90, Mean Corpuscular Hemoglobin 29.1, Mean Corpuscular Hemoglobin Concent 32.2, Red Cell Distribution Width 14.1, Platelet Count 194, Mean Platelet Volume 5.5L, Neutrophils (%) (Auto) 44.0L, Lymphocytes (%) (Auto) 41.4, Monocytes (%) (Auto) 9.6, Eosinophils (%) (Auto) 4.0H, Basophils (%) (Auto ) 1.1, Erythrocyte Sedimentation Rate 23, Sodium Level 142, Potassium Level 4.2 , Chloride Level 110H, Carbon Dioxide Level 27, Anion Gap 5, Blood Urea Nitrogen 17, Creatinine 0.7, Estimat Glomerular Filtration Rate > 60, Glucose Level 102, Calcium Level 8.6, Phosphorus Level 4.1, Magnesium Level 2.1, Total Bilirubin 0.3, Aspartate Amino Transf (AST/SGOT) 29, Alanine Aminotransferase ( ALT/SGPT) 110H, Alkaline Phosphatase 73, Total Protein 6.1L, Albumin 2.9L, Globulin 3.2, Albumin/Globulin Ratio 0.9L Height (Feet): 5 Height (Inches): 6.00 Weight (Pounds): 195 General Appearance: WD/WN, no apparent distress, alert Neurologic: alert, oriented x 3, responsive, depressed affect Ana Cristina Camara M.D. Nov 25, 2017 22:44
--- NOTE | 2017-11-25 22:47 | Geriatric Progress Note ---
Assessment/Plan Assessment/Plan mdd insomnia anxiety trazodone 50mg qhs Discussed with: patient Subjective Interval Events 11/24/17 Mood/Memory: Reports: prior hx, anxiety, depressed feelings, emotional problems Geriatric Geriatric Last 24 Hour Vital Signs Date Time Temp Pulse Resp B/P (MAP) Pulse Ox O2 Delivery O2 Flow Rate FiO2 11/25/17 20:00 Room Air 11/25/17 20:00 98.1 64 20 135/70 94 98.1 11/25/17 16:00 97.2 87 19 132/80 97 Room Air 97.2 11/25/17 12:25 97.7 11/25/17 12:00 97.8 61 20 145/67 94 Room Air 97.8 11/25/17 08:24 97.7 11/25/17 08:23 137/72 11/25/17 08:00 98.0 69 20 137/72 93 Room Air 98.0 11/25/17 04:38 97.7 11/25/17 04:08 97.7 11/25/17 04:00 97.3 52 20 143/61 94 97.3 11/25/17 00:00 97.7 55 21 129/64 92 97.7 11/24/17 23:53 98.5 Intake and Output 11/24/17 11/25/17 19:00 07:00 Intake Total 800 ml 500 ml Balance 800 ml 500 ml Intake Oral 800 ml IV Total 500 ml # Voids 5 5 # Bowel Movements 1 Laboratory Tests Test 11/25/17 06:38 White Blood Count 5.7 K/UL (4.8-10.8) Red Blood Count 4.17 M/UL (4.20-5.40) L Hemoglobin 12.1 G/DL (12.0-16.0) Hematocrit 37.6 % (37.0-47.0) Mean Corpuscular Volume 90 FL (80-99) Mean Corpuscular Hemoglobin 29.1 PG (27.0-31.0) Mean Corpuscular Hemoglobin Concent 32.2 G/DL (32.0-36.0) Red Cell Distribution Width 14.1 % (11.6-14.8) Platelet Count 194 K/UL (150-450) Mean Platelet Volume 5.5 FL (6.5-10.1) L Neutrophils (%) (Auto) 44.0 % (45.0-75.0) L Lymphocytes (%) (Auto) 41.4 % (20.0-45.0) Monocytes (%) (Auto) 9.6 % (1.0-10.0) Eosinophils (%) (Auto) 4.0 % (0.0-3.0) H Basophils (%) (Auto) 1.1 % (0.0-2.0) Erythrocyte Sedimentation Rate 23 MM/HR (0-30) Sodium Level 142 MMOL/L (136-145) Potassium Level 4.2 MMOL/L (3.5-5.1) Chloride Level 110 MMOL/L (98-107) H Carbon Dioxide Level 27 MMOL/L (21-32) Anion Gap 5 mmol/L (5-15) Blood Urea Nitrogen 17 mg/dL (7-18) Creatinine 0.7 MG/DL (0.55-1.30) Estimat Glomerular Filtration Rate > 60 mL/min (>60) Glucose Level 102 MG/DL (74-106) Calcium Level 8.6 MG/DL (8.5-10.1) Phosphorus Level 4.1 MG/DL (2.5-4.9) Magnesium Level 2.1 MG/DL (1.8-2.4) Total Bilirubin 0.3 MG/DL (0.2-1.0) Aspartate Amino Transf (AST/SGOT) 29 U/L (15-37) Alanine Aminotransferase (ALT/SGPT) 110 U/L (12-78) H Alkaline Phosphatase 73 U/L (46-116) Total Protein 6.1 G/DL (6.4-8.2) L Albumin 2.9 G/DL (3.4-5.0) L Globulin 3.2 g/dL Albumin/Globulin Ratio 0.9 (1.0-2.7) L Current Medications Medications (Trade) Dose Ordered Sig/Karis Route PRN Reason Start Time Stop Time Status Last Admin Dose Admin Aspirin (ASA) 81 mg DAILY ORAL 11/23/17 09:00 12/22/17 08:59 11/25/17 08:23 Clonidine HCl (Catapres Tab) 0.1 mg Q4H PRN ORAL For High Blood Pressure 11/23/17 17:15 12/23/17 17:14 11/23/17 20:09 Dextrose (Dextrose 50%) STAT PRN IV Hypoglycemia 11/22/17 17:00 12/22/17 16:59 Dextrose/Sodium Chloride 1,000 ml @ 50 mls/hr Q20H IV 11/22/17 17:15 12/21/17 17:14 11/25/17 13:03 Duloxetine HCl (Cymbalta) 60 mg DAILY ORAL 11/23/17 09:00 12/22/17 08:59 11/25/17 08:23 Heparin Sodium (Porcine) (Heparin 5000 units/ml) 5,000 units EVERY 12 HOURS SUBQ 11/22/17 21:00 12/21/17 20:59 11/25/17 20:53 Lisinopril (Zestril) 10 mg DAILY ORAL 11/23/17 17:30 12/23/17 17:29 11/25/17 08:23 Lorazepam (Ativan 2mg/ml 1ml) 0.5 mg Q4H PRN IV For Anxiety 11/22/17 17:00 11/28/17 16:59 Morphine Sulfate (Morphine Sulfate) 4 mg Q4H PRN IVP Severe Pain 11/24/17 11:45 12/01/17 11:44 11/25/17 20:51 Ondansetron HCl (Zofran) 4 mg Q6H PRN IVP Nausea & Vomiting 11/22/17 17:00 12/21/17 16:59 Topiramate (Topamax) 100 mg FOUR TIMES A DAY ORAL 11/22/17 18:00 12/21/17 17:59 11/25/17 20:50 Trazodone HCl (Desyrel) 200 mg BEDTIME ORAL 11/22/17 21:00 12/21/17 20:59 11/25/17 20:50 Height (Feet): 5 Height (Inches): 6.00 Weight (Pounds): 195 General Appearance: well appearing, well groomed, well nourished, no apparent distress, alert, good eye contact, appears stated age Neurologic: alert, oriented x3, responsive Psychiatric: depressed affect Psychiatric Orientation: person, place, time, situation Ana Cristina Camara M.D. Nov 25, 2017 22:47
--- NOTE | 2017-11-25 23:45 | Consultation ---
DATE OF CONSULTATION: 11/25/2017 NEUROLOGICAL CONSULTATION CONSULTING PHYSICIAN: Evan Aiken M.D. REQUESTING PHYSICIAN: Jackson Bowers M.D. HISTORY OF PRESENT ILLNESS: The patient is a 67 years old female, seen in neurological consultation to evaluate the episodes of a transient fall as well as knee "gave way" and she fell landing on the left side of the body. On arrival to the emergency room, the patient was oriented only x2. She was unable to provide with history. Apparently, the caregiver came and found her on the ground, was not clear how long she stayed on the ground. Paramedics were called to the scene. She was with pinpoint pupils, but slowly breathing 10 per minute with oxygen saturation of 92, and she was given 2 mg of Narcan. She became more awake and alert, but still a bit confused and unable to provide with full history. She was able to move all her extremities. The patient informed that she was taking "too much of her sleep medication." Her vital signs on admission included heart heart rate of 104, blood pressure 122/68, and she was afebrile. Her examination revealed infestation with bed bugs. Her initial laboratory studies included unremarkable CBC, coagulation panel coma, and urinalysis 1+ leukocyte esterase and 3+ protein. Toxicology panel, negative for alcohol or salicylates. Chemistry panel with BUN of 47, blood sugar 178, lactic acid 2.70, ALT of 374, BNP of 283, and total protein 8.5. Following admission, CAT scan of the brain was obtained, this revealed small lateral and third ventricles in the setting of ventriculostomy. MRI was requested and MRI of the brain was done, revealing no evidence of acute intracranial abnormalities, mild small vessel disease noted, and ventriculostomy shunt in the right frontal region was noted. No evidence of acute intracranial abnormalities. Hip x-rays, degenerative spurring in the left hip. X-ray of the left heel, thickening of Achilles tendon with calcification suggestive of underlying tendinopathy and chronic dystrophic calcification/interstitial injury. Rib x-ray, no fracture, no acute process, and x-ray of the knees, postsurgical changes, status post total knee arthroplasty, no effusion, no fracture, and no dislocation. The patient is under the care of pain specialist, . 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 She has chronic low back pain, chronic knee pain, depression, and anxiety. She is status post bladder surgery. MEDICATIONS: Treatment include acetazolamide 500 mg three times a day, aspirin, Dulcolax, Celebrex, Cymbalta 60 mg daily, lactulose, methazolamide, oxycodone 20 mg three times a day, MiraLAX, Topamax 100 mg four times a day, trazodone mg at bedtime, zolpidem, and potassium supplements. Current medications, none. ALLERGIES: Corticosteroids. FAMILY HISTORY: Noncontributory. SOCIAL HISTORY: Lives alone, but has a caregiver, comes twice a week. REVIEW OF SYMPTOMS: The patient continued to have dull headaches, pain in her knees both feet, both legs feel "heavy," pain in her left chest area. She has weakness in both lower extremities, left knee gives out. No chest pain. No palpitations. No respiratory problems. Denies abdominal pain or discomfort. No urine or bowel incontinence. Admitted being depressed. PHYSICAL EXAMINATION: GENERAL: A well-developed, well-nourished female, not in acute distress, lying comfortably in bed. VITAL SIGNS: Her vital signs now are stable. Blood pressure 132/80, temperature 97.2. HEENT: Head, normocephalic. There is no evidence of trauma. Eyes, ears, and throat are clear. NECK: Supple. No meningeal signs. MUSCULOSKELETAL: Palpable tenderness in the left rib cage. Tenderness to palpation both knees. Peripheral pulses 1+ symmetric. MENTAL STATUS: She is alert and oriented x3 with no evidence of aphasia or apraxia. Cognitive function normal. Emotionally labile, tense, anxious. Mood depressed. The patient indicates she is not ready to go home until all tests done. CRANIAL NERVE II: Pupils both responding to light and accommodation. Extraocular movements full range. Visual acuity in the left finger perception. CRANIAL NERVE V: Normal corneal responses. CRANIAL NERVE VII: No facial asymmetry. CRANIAL NERVE VIII: Grossly normal hearing. CRANIAL NERVE IX THROUGH XII: Within normal limits. MOTOR EXAMINATION: Able to lift arms and legs against gravity. Deep tendon reflexes 1+ and symmetric with downgoing toes on both sides. Sensory exam, normal to pinprick and light touch. Gait not tested. IMPRESSION: 1. Accidental drug overdose with trip and fall accident. 2. Status post blunt injuries, knees, flank region, and posttraumatic cephalgia. 3. History of pseudotumor cerebri with [employer] shunt in place. 4. Chronic pain syndrome, opiate dependent. 5. Anxiety. 6. Depression. 7. Status post bladder surgery and left knee surgeries. RECOMMENDATIONS: MRI of the brain as well as multiple x-rays revealed no fracture, no dislocation. Physical therapy and occupational therapy assessment is necessary prior to being discharged to define proper precautions for this patient who tend to fall down. The patient had been obviously overdosed with opiates, although she is denying this. Proper adjustment of treatment is suggested and will be deferred to pain management. We would also recommend discontinue unessential treatment including Diamox, which was effective only for acute stages of pseudotumor cerebri. Psychiatry assessment to adjust antidepressants. Neurologically stable. Thank you for allowing me to see this interesting patient in neurological consultation. Evan Aiken M.D. DR: REN JOB#: [id number] CC:
[2017-11-26] VITALS: BP_SYST 145; BP_SYST 158; BP_DIAS 75; BP_DIAS 96
[2017-11-26] MEDS: Morphine Sulfate 4mg/ml Inj IVP PRN ×3 (02:43→11:13)
[2017-11-26 04:00] VITALS: BP 123/70
[2017-11-26] MEDS: D5 1/2NS 1,000 ML IV SCH (05:54)
[2017-11-26 08:00] VITALS: BP 145/75
[2017-11-26 08:44] LABS: ANION GAP 7 mmol/L (5-15); BLOOD UREA NITROGEN 22 mg/dL (7-18); CALCIUM 8.6 MG/DL (8.5-10.1); CARBON DIOXIDE 26 MMOL/L (21-32); CHLORIDE 109 MMOL/L (98-107); CREATININE 0.7 MG/DL (0.55-1.30); POTASSIUM 4.2 MMOL/L (3.5-5.1); SODIUM 142 MMOL/L (136-145)
[2017-11-26 08:45] LABS: BASOPHILS % (AUTO) 1.1 % (0.0-2.0); HEMOGLOBIN 12.4 G/DL (12.0-16.0); MEAN CORPUSCULAR VOLUME 90 FL (80-99); MONOCYTES % (AUTO) 11.4 % (1.0-10.0); NEUTROPHILS % (AUTO) 56.6 % (45.0-75.0); PLATELET COUNT 201 K/UL (150-450); RED BLOOD COUNT 4.23 M/UL (4.20-5.40); RED CELL DISTRIBUTION WIDTH 13.9 % (11.6-14.8); WHITE BLOOD COUNT 7.2 K/UL (4.8-10.8)
[2017-11-26] MEDS: Aspirin Baby 81mg ORAL SCH (10:20)
[2017-11-26] MEDS: Lisinopril 10mg tab ORAL SCH (10:20)
[2017-11-26] MEDS: DULoxetine 30mg cap ORAL SCH (10:21)
[2017-11-26] MEDS: Topiramate 100mg tab ORAL SCH ×2 (10:21→13:21)
[2017-11-26] MEDS: Heparin 5000 units/ml inj SUBQ SCH (10:24)
[2017-11-26 12:00] VITALS: BP 139/74
--- NOTE | 2017-11-26 15:41 | Neurology Progress Note ---
Interim History Interim History ROS Limited/Unobtainable: No Complaints: L knee unstability, dull CLARK anxiety Events: stable Objective Physical Exam Last Vital Signs Date Time Temp Pulse Resp B/P (MAP) Pulse Ox O2 Delivery O2 Flow Rate FiO2 11/26/17 12:00 98.7 62 18 139/74 96 Room Air 98.7 11/21/17 12:22 2.0 Laboratory Tests Test 11/26/17 07:40 White Blood Count 7.2 K/UL (4.8-10.8) Red Blood Count 4.23 M/UL (4.20-5.40) Hemoglobin 12.4 G/DL (12.0-16.0) Hematocrit 38.0 % (37.0-47.0) Mean Corpuscular Volume 90 FL (80-99) Mean Corpuscular Hemoglobin 29.4 PG (27.0-31.0) Mean Corpuscular Hemoglobin Concent 32.7 G/DL (32.0-36.0) Red Cell Distribution Width 13.9 % (11.6-14.8) Platelet Count 201 K/UL (150-450) Mean Platelet Volume 6.2 FL (6.5-10.1) L Neutrophils (%) (Auto) 56.6 % (45.0-75.0) Lymphocytes (%) (Auto) 28.0 % (20.0-45.0) Monocytes (%) (Auto) 11.4 % (1.0-10.0) H Eosinophils (%) (Auto) 3.0 % (0.0-3.0) Basophils (%) (Auto) 1.1 % (0.0-2.0) Sodium Level 142 MMOL/L (136-145) Potassium Level 4.2 MMOL/L (3.5-5.1) Chloride Level 109 MMOL/L (98-107) H Carbon Dioxide Level 26 MMOL/L (21-32) Anion Gap 7 mmol/L (5-15) Blood Urea Nitrogen 22 mg/dL (7-18) H Creatinine 0.7 MG/DL (0.55-1.30) Estimat Glomerular Filtration Rate > 60 mL/min (>60) Glucose Level 103 MG/DL (74-106) Calcium Level 8.6 MG/DL (8.5-10.1) General: well developed, well nourished, no acute distress Head: atraumatic Neck: no rigidity Neurologic Exam Mental Status: awake, alert, oriented x4, normal cognition, good mathematical skills, normal recent memory, normal remote memory, preserved visuospatial function, other - anxious depressed Speech: normal speech, no dysarthia Language: normal language, no aphasia Cranial Nerve II: fundus normal, visual pastor, no papilledema Cranial Nerves III, IV, : PERRLA, EOMI, pupils Cranial Nerve V: normal facial sensations, temporales function normal, masseters function normal, pterygoids function normal Cranial Nerve VII: no facial asymmetry, normal facial expressions Cranial Nerve VIII: normal hearing, no nystagmus Cranial Nerve IX: normal palate elevation, gag response Cranial Nerve X: no voice hoarseness Cranial Nerve XI: SCM symmetric, trapezii function normal Cranial Nerve XII: tongue midline, no tongue atrophy/fasciculations Motor System: normal muscle tone, strength 5/5, no involuntary movement, no muscle wasting Sensory: normal pinprick, normal light touch, normal position sense, normal graphesthesia Coordination: normal finger to nose bilaterally, normal heel to nunes bilaterally, negative Romberg test Deep Tendon Reflexes: 0 bicep (L), 0 bicep (R), 0 tricep (L), 0 tricep (R), 0 brachioradialis (L), 0 brachioradialis (R), 0 knee (L), 0 knee (R), 0 ankle (L) , 0 ankle (R) Reflexes: mute plantar (L), mute plantar (R) Stance: normal Gait: stable, normal regular, heel + toe gait Impression/Recommendations Problems: (1) Pseudotumor cerebri (2) Ventriculo-peritoneal shunt status (3) Hypertension (4) Depression (5) Drug overdose (6) Headache, tension-type Status: stable Recommendations #[id number] neuro stable outpatient [facility] eval ortho eval re L knee L knee brace KI MORENO Nov 26, 2017 15:41
[2017-11-26 16:00] VITALS: BP 191/105
[2017-11-26] MEDS ORDERED: D5 1/2NS 1000ml IV ONE ×3 (16:06)
[2017-11-26 16:15] VITALS: BP 154/89
[2017-11-26] MEDS ORDERED: TraZODone 50mg tab ORAL SCH (21:00)
--- NOTE | 2017-11-27 09:28 | Physician Query ---
--------- THIS DOCUMENT IS A PERMANENT PART OF THE MEDICAL RECORD --------- PLEASE COMPLETE DOCUMENT BEFORE SIGNING Dear Dr. ALBA Date: 11/27/17 [employer]/CDS Name: CINTHIA LAMAS/CDS [employer] / CDS Phone # [phone] Exercise your independent professional judgment when responding to query. Question asked do not imply a particular answer is desired/expected. Clinical Documentation States: "The patient is admitted with altered mental status for presumed opiate overdose ." documented in H&P "EMS gave her 2 mg of Narcan and patient was more awake and alert. She is currently still confused, and not giving much history." in Pulmonology consultation note Clinical Findings Show: PE: Neurologic: Alert and Oriented x 2 Please indicate the nature and chronicity of the condition below: [] Metabolic Encephalopathy [] Toxic Encephalopathy [] Toxic - Metabolic Encephalopathy [] Progressive Encephalopathy [] Encephalopathy, Other [] Other: [] Not Applicable Severity [] Acute [] Chronic [] Acute on Chronic [] Unable to determine Condition Present on Admission: [] Yes [] No []Clinically Undeterminable Please also document in your Progress Notes and/or Discharge Summary and indicate if the condition was present on admission. LAMONT ALBA M.D. TIME & DATE [facility]
--- NOTE | 2017-11-27 21:57 | General Progress Note ---
Assessment/Plan Assessment/Plan opioid dependence anxiety mdd trazodone 50mg qhs Subjective Date patient seen: Nov 26, 2017 Allergies: Coded Allergies: CORTICOSTEROIDS (GLUCOCORTICOIDS) (Verified Allergy, Unknown, 11/17/17) Subjective the pt did not want to leave Objective Intake and Output 11/26/17 11/27/17 19:00 07:00 Intake Total 1210 ml Balance 1210 ml Intake Oral 960 ml IV Total 250 ml # Voids 1 Height (Feet): 5 Height (Inches): 6.00 Weight (Pounds): 195 General Appearance: no apparent distress, alert, agitated Ana Cristina Camara M.D. Nov 27, 2017 21:57
--- NOTE | 2017-11-28 12:30 | Discharge Summary ---
Discharge Summary Hospital Course Date of Admission Nov 21, 2017 at 12:08 Date of Discharge Nov 26, 2017 at 16:07 Admitting Diagnosis AMS HPI Elena Licona is a 67 year old female who was admitted on Nov 21, 2017 at 12:08 for Altered Mental Status Hospital Course [id number] Discharge Discharge Disposition Patient was discharged to Home with Home Health(06) Discharge Diagnoses: Lexi Huntley NP Nov 28, 2017 12:30
--- NOTE | 2017-11-29 05:15 | Discharge Summary 2 SIG ---
DATE OF ADMISSION: 11/21/2017 DATE OF DISCHARGE: 11/26/2017 ATTENDING PHYSICIAN: Jackson Bowers M.D. CONSULTANTS: 1. Blade Sykes M.D. 2. Evan Aiken M.D. 3. Ana Cristina Camara M.D. BRIEF HOSPITAL COURSE: The patient is a 67-year-old female, who presented to ED with complaint of altered mental status. The patient is unable to contribute much to history and PE. The patient was from home and had a caregiver who comes in couple of times a week. She was found by the caregiver on the floor. Unknown how long the patient has been on the floor. EMS were then summoned. She had pinpoint pupils. She was given Narcan and apparently became more arousable. She has medical history significant for depression and chronic pain syndrome and takes oxycodone and might have taken too much of her sleep medications. She could not recall the name. On evaluation at ED, blood work did not show any leukocytosis. Head CT showed small ventricles with ventriculostomy. There was a considerable artifact in the posterior fossa. She had a chest x-ray done that showed limited evaluation with mild left basal atelectasis. [employer] shunt projected over the right side of the chest. She was admitted to telemetry for evaluation of altered mental status. She was diagnosed to have opioid dependence and anxiety. She was followed by Psychiatry service. She had insomnia and was eventually given trazodone 50 mg at bedtime. She underwent neurological evaluation. MRI of the brain revealed no evidence of acute intracranial abnormality with mild small vessel disease noted and ventriculostomy shunt in the right frontal region was likewise noted. She complained of pain on the hips and heel. X-ray of the hips showed degenerative spurring in the left hip. X-ray of the left heel showed thickening of the Achilles tendon with calcification suggestive of tendinopathy and chronic dystrophic calcifications/interstitial injury. She also complained of pain on the ribs. X-ray showed no fractures, no acute process. Knee x-ray also showed post surgical changes, status post total knee arthroplasty with good anatomic alignment of prosthesis and no evidence of significant periprosthetic lucency. There was no acute process demonstrated. She was given physical and occupational therapy. She had rashes on arrival to the ED and was given Elimite cream x1. She was given IV hydration. She was advised left knee brace. She was eventually discharged home with front wheel walker. FINAL DIAGNOSES: 1. Acute toxic metabolic encephalopathy/altered mental status. 2. Drug overdose. 3. Pain on the knee, ankle, and ribs. 4. Ventriculoperitoneal shunt status. 5. Depression. 6. Headache, tension type. 7. Hypertension. DISPOSITION: The patient was discharged home. DISCHARGE INSTRUCTIONS: Follow up as outpatient in a week. Blade Sykes M.D. I have been assigned to dictate discharge summary on this account and I was not involved in the patient's management. Lexi Huntley N.P. DR: MARLY JOB#: [id number] CC: BLANKA
== END 2017-11-26 16:07 | disposition home or self-care (01) | DRG 917 ==
LOC: EDBD 10:42 → EMR 12:05 → 2E 12:08 → EDBEDREQ 14:51 → 2E 15:49 → 4E 11-22 15:55
DX: T40.2X1A Poisoning by other opioids, accidental (unintentional), initial encounter (principal); G92 Toxic encephalopathy; F41.9 Anxiety disorder, unspecified; R41.82 Altered mental status, unspecified; Y92.009 Unspecified place in unspecified non-institutional (private) residence as the place of occurrence of the external cause; Z98.2 Presence of cerebrospinal fluid drainage device; G89.4 Chronic pain syndrome; Z88.8 Allergy status to other drugs, medicaments and biological substances; F32.9 Major depressive disorder, single episode, unspecified; G47.00 Insomnia, unspecified; R07.81 Pleurodynia; G44.209 Tension-type headache, unspecified, not intractable; I10 Essential (primary) hypertension; M25.562 Pain in left knee; H54.62 Unqualified visual loss, left eye, normal vision right eye; M54.5 Low back pain; G93.2 Benign intracranial hypertension; M25.572 Pain in left ankle and joints of left foot; Z91.81 History of falling
CPT/HCPCS: 36415; 70450; 70551; 71045; 73502; 80048; 80053; 80307; 80329; 81003; 82550; 83605; 83735; 83880; 84100; 84484; 85007; 85025; 85610; 85651; 85730; 86710; 87040; 93005; 99285